=== PATIENT | male | born 1950 | race Caucasian/White ===

== ENCOUNTER 2021-09-14 18:36 | Emergency (ER) | payer MEDICARE, SELFPAY ==
[2021-09-14 18:32] VITALS: BP 147/81; PULSE 86; RESP 16; TEMP 36.8; O2SAT 96; BMI 30.9
--- NOTE | 2021-09-14 20:10 | PC.NURSE ---
Updated family via phone.
--- NOTE | 2021-09-14 20:45 | HMH.EDRECH ---
ED Disposition Clinical Impression: Gastrostomy tube in place Disposition: Home, Self-Care Condition on Discharge: Good Instructions: How to Care for a Surgical Wound Additional Instructions: call pcp and surg in am Referrals: Hay Zambrano MD [Primary Care Provider] - - Critical Care Critical Care Time: No Attestation: On 09/14/21, the high probability of a clinically significant, sudden or life threatening deterioration of the following system(s) required my full and direct attention, intervention and personal management. The time I documented below is in addition to time spent performing reported procedures but includes the following listed in this critical care notation. Medical Decision Making - Medical Records Medical records reviewed: Yes: I reviewed the patient's medical records. - Jose Inquiry Pt receiving controlled substance: No Vital Signs: 09/14/21 18:32 09/14/21 21:04 Temperature 98.3 F 98.8 F Temperature Source Oral Rectal Pulse Rate 89 Pulse Rate [Right Radial] 86 Respiratory Rate 16 18 Blood Pressure 139/77 Blood Pressure [Right Arm] 147/81 H Blood Pressure Mean [Right Arm] 103 Blood Pressure Source Automatic Cuff Blood Pressure Source [Right Arm] Automatic Cuff Blood Pressure Position Supine Blood Pressure Position [Right Arm] Sitting 02 Sat by Pulse Oximetry 96 96 Oxygen Delivery Method Room Air Room Air - Lab Data Lab results reviewed: Yes: I reviewed the patient's lab results. Lab Results 09/14/21 20:58: WBC 8.2, RBC 4.74, Hgb 15.2, Hct 45.6, MCV 96.2 H, MCH 32.0 H, MCHC 33.3, RDW 13.2, Plt Count 321, MPV 7.7, Neut % (Auto) 57.4, Lymph % (Auto) 28.8, [place] % (Auto) 7.9, Eos % (Auto) 3.3, Baso % (Auto) 2.6 H, Neut # (Auto) 4.7, Lymph # (Auto) 2.4, [place] # (Auto) 0.7, Eos # (Auto) 0.3, Baso # (Auto) 0.2 09/14/21 20:58: PT 11.7, INR 1.04 09/14/21 20:58: Sodium 135 L, Potassium 4.0, Chloride 99, Carbon Dioxide 32 H, Anion Gap 8.0, BUN 18, Creatinine 0.60 L, Estimated Creat Clear 102, Estimated GFR 133, Est GFR ( Amer) 161, Glucose 161 H, Calcium 9.1, Total Bilirubin 0.6, AST 44, ALT 61, Alkaline Phosphatase 207 H, C-Reactive Protein 24.0 H, Total Protein 6.6, Albumin 3.4 L, Globulin 3.2, Albumin/Globulin Ratio 1.1 Result diagrams: 09/14/21 20:58 09/14/21 20:58 Orders (Tests/Meds): ORDERS Category Date Time Status C-Reactive Protein Stat Lab 09/14/21 20:58 Results Complete Blood Count Auto Diff Stat Lab 09/14/21 20:58 Results Comprehensive Metabolic Panel Stat Lab 09/14/21 20:58 Results Erythrocyte Sedimentation Rate Stat Lab 09/14/21 20:58 Results Procalcitonin Stat Lab 09/14/21 20:58 Results Medical Decision Narrative: stable exam and labs - call surg for follow up in am Recheck HPI - General Chief Complaint: Recheck/Abnormal Lab/Rx Stated Complaint: Bleeding G-Tube Time Seen by Provider: 09/14/21 20:45 Mode of Arrival: EMS Source of Information: Patient, EMS, Medical Record Limitations: No Limitations Description of Symptoms (Recalled from ER Triage Doc. by RN): Pt to ED r/t bleeding from G-Tube site. EMS reports that pt had tube placed on 09/03 and followed up on 09/11 d/t bleeding from site. group home staff reports that G-Tube still functions appropriately, but that bleeding from insertion site has been continuous since placement. - History of Present Illness HPI narrative: reported bleeding from gt ube site complaint: other (g tube site ) Initial visit (ago): day(s) Returns today for: wound recheck Context: other (bleeding from g tube site ) Associated symptoms: none - Related Data Home Medications Medication Instructions Recorded Confirmed aspirin 81 mg tablet,delayed 81 mg PO QDAY 06/01/17 release atorvastatin 80 mg tablet 80 mg PO QDAY 06/01/17 cilostazol 100 mg tablet 100 mg PO BID 06/01/17 liraglutide 0.6 mg/0.1 mL (18 mg/3 1.6 mg SUB-Q QDAY ml 06/01/17 mL) subcutaneous pen injector loratadine
[2021-09-14 21:04] VITALS: BP 139/77; PULSE 89; RESP 18; TEMP 37.1; O2SAT 96
[2021-09-14 21:11] LABS: Basophils # 0.2 K/mm3 (0-0.2); Basophils % 2.6 % (0.1-2.0); Eosinophils # 0.3 K/mm3 (0.0-0.4); Eosinophils % 3.3 % (0.1-12.0); Hematocrit 45.6 % (42.0-52.0); Hemoglobin 15.2 g/dL (14.1-18.0); Lymphocytes # 2.4 K/mm3 (0.7-4.5); Lymphocytes % 28.8 % (10-50); Mean Corpuscular HGB Conc 33.3 g/dL (31.8-35.4); Mean Corpuscular Volume 96.2 fl (80-94); Mean Platelet Volume 7.7 fl (7.4-10.4); Monocytes # 0.7 K/mm3 (0.1-1.0); Monocytes % 7.9 % (1.7-9.3); Neutrophils # 4.7 K/mm3 (1.8-7.8); Neutrophils % 57.4 % (37.0-80.0); Platelet Count 321 K/mm3 (142-424); Red Blood Count 4.74 M/mm3 (4.60-6.20); Red Cell Distribution Width 13.2 % (11.5-17.5); White Blood Count 8.2 K/mm3 (4.8-10.8)
[2021-09-14 21:15] LABS: Chloride 99 mmol/L (98-107); Sodium 135 mmol/L (136-145)
[2021-09-14 21:18] LABS: Alanine Aminotransferase 61 U/L (12-78); Albumin Level 3.4 g/dl (3.5-5.0); Albumin/Globulin Ratio 1.1 (1.1-1.8); Alkaline Phosphatase 207 U/L (38-126); Aspartate Amino Transferase 44 U/L (17-59); Bilirubin,Total 0.6 mg/dl (0.2-1.3); Blood Urea Nitrogen 18 mg/dl (9-20); Carbon Dioxide 32 mmol/L (22.0-30.0); Creatinine Clearance Estimated 102 mL/min (50-200); Estimated Glomerular Filt Rate 133 ml/min (>60); GFR (African American) 161 ML/MIN (>60); Globulin 3.2 g/dL (1.3-3.2); Total Protein,Serum 6.6 g/dl (6.3-8.2)
[2021-09-14 21:19] LABS: Calcium 9.1 mg/dl (8.4-10.2); Glucose 161 mg/dl (74-100)
[2021-09-14 21:22] LABS: INR 1.04 (0.9-1.1); Prothrombin Time 11.7 seconds (10.1-12.5)
[2021-09-14 21:40] VITALS: BP 139/79; PULSE 89; RESP 16; O2SAT 96
[2021-09-14 21:45] VITALS: BP 148/80; PULSE 88; RESP 16; O2SAT 96
[2021-09-14 22:00] LABS: Erythrocyte Sedimentation Rate 85 mm/hr (0-20)
[2021-09-14 22:01] VITALS: BP 149/83; PULSE 83; RESP 18; TEMP 36.7; O2SAT 94
[2021-09-14 22:05] LABS: Procalcitonin 0.124 ng/mL (0.0-2.0)
--- NOTE | 2021-09-14 22:22 | PC.NURSE ---
Santa notified of patient ready to be transferred back to [place], they will transport as soon as other ambulance gets back from [place]
== END 2021-09-14 22:41 | disposition home or self-care (01) ==
PROVIDERS: Emergency Provider Emergency Medicine; PCP Internal Medicine Adolescent Medicine
DX: K94.21 Gastrostomy hemorrhage (principal); R79.9 Abnormal finding of blood chemistry, unspecified; R00.2 Palpitations; R53.81 Other malaise; I10 Essential (primary) hypertension; I25.10 Atherosclerotic heart disease of native coronary artery without angina pectoris; I73.9 Peripheral vascular disease, unspecified; K21.9 Gastro-esophageal reflux disease without esophagitis; E78.5 Hyperlipidemia, unspecified; F32.A Depression, unspecified; Z79.1 Long term (current) use of non-steroidal anti-inflammatories (NSAID); Z79.51 Long term (current) use of inhaled steroids; Z79.4 Long term (current) use of insulin; Z79.82 Long term (current) use of aspirin; Z79.02 Long term (current) use of antithrombotics/antiplatelets; Z79.899 Other long term (current) drug therapy; Z82.49 Family history of ischemic heart disease and other diseases of the circulatory system
CPT/HCPCS: 80053; 84145; 85025; 85610; 85651; 86140; 99282

== ENCOUNTER 2021-09-21 22:33 | Inpatient (IN) | payer MEDICARE, SELFPAY ==
[2021-09-21 22:20] VITALS: BP 143/75; PULSE 130; RESP 36; TEMP 38.8; O2SAT 84; BMI 22.4
--- NOTE | 2021-09-21 22:31 | ECG_ITS ---
APPROVED REPORT Exam: Resting ECG HR:127 bpm ECG Measurements Heart Rate 127 AXES TX 125 P 70 QRSd 108 QRS 87 QT 344 T 35 QTc 419 Conclusion SINUS TACHYCARDIA NONSPECIFIC ST & T-WAVE ABNORMALITY ABNORMAL RHYTHM ECG UNCONFIRMED REPORT Electronically signed by : Hay Zambrano MD 09/22/2021 21:20:47
[2021-09-21 22:35] LABS: ABG Base Excess 8.1 mmol/L (-2.4-2.3); ABG HCO3 31.7 mmhg (22.0-26.0); ABG Oxygen Saturation 89 % (90-100); ABG PH 7.48 mmol/L (7.35-7.45); ABG PO2 52.2 mmhg (80-100)
[2021-09-21 22:36] LABS: Allen's Test Acceptable; Source Right Radial
[2021-09-21 22:47] VITALS: BMI 22.4
--- NOTE | 2021-09-21 22:47 | XR_ITS ---
PROCEDURE INFORMATION: Exam: XR Chest Exam date and time: 09/21/2021 10:56 PM Age: 70 years old Clinical indication: Shortness of breath; Additional info: Congestion TECHNIQUE: Imaging protocol: XR of the chest. Views: 1 view. COMPARISON: CR CXR1 CHEST-PORTABLE 08/02/2015 12:47 PM FINDINGS: Lungs: Unremarkable. No consolidation. Pleural spaces: Unremarkable. No pleural effusion. No pneumothorax. Heart/Mediastinum: Midline sternotomy. No cardiomegaly. Bones/joints: Unremarkable. IMPRESSION: No acute findings.
--- NOTE | 2021-09-21 22:55 | PC.NURSE ---
RAD at BS
[2021-09-21 22:59] LABS: Microscopic, Urine URINE MICROSCOPIC (MICROSCOPIC)
[2021-09-21 23:07] LABS: Basophils # 0.2 K/mm3 (0-0.2); Basophils % 0.8 % (0.1-2.0); Eosinophils % 0.1 % (0.1-12.0); Hematocrit 42.8 % (42.0-52.0); Lymphocytes # 0.6 K/mm3 (0.7-4.5); Lymphocytes % 3.2 % (10-50); Mean Corpuscular HGB Conc 32.8 g/dL (31.8-35.4); Mean Corpuscular Hemoglobin 31.8 pg (27.0-31.2); Mean Platelet Volume 8.4 fl (7.4-10.4); Monocytes # 0.8 K/mm3 (0.1-1.0); Monocytes % 4.3 % (1.7-9.3); Neutrophils # 17.7 K/mm3 (1.8-7.8); Neutrophils % 91.6 % (37.0-80.0); Platelet Count 288 K/mm3 (142-424); Red Blood Count 4.41 M/mm3 (4.60-6.20); Red Cell Distribution Width 13.4 % (11.5-17.5); White Blood Count 19.3 K/mm3 (4.8-10.8)
--- NOTE | 2021-09-21 23:07 | PC.NURSE ---
Family at BS at this time
[2021-09-21 23:09] LABS: MANUAL DIFFERENTIAL MANUAL DIFFERENTIAL (MANUAL DIFF)
--- NOTE | 2021-09-21 23:09 | HMH.EDSOB ---
ED Disposition Clinical Impression: Severe sepsis with acute organ dysfunction, Elevated troponin, Gastrostomy tube in place Respiratory failure with hypoxia Qualifiers: Chronicity: acute Qualified Code(s): J96.01 - Acute respiratory failure with hypoxia UTI (urinary tract infection) Qualifiers: Urinary tract infection type: site unspecified Hematuria presence: without hematuria Qualified Code(s): N39.0 - Urinary tract infection, site not specified Disposition: Admitted As Inpatient Condition on Discharge: Serious Referrals: Provider,Referral, [Referring] - - Critical Care Critical Care Time: No Attestation: On 09/21/21, the high probability of a clinically significant, sudden or life threatening deterioration of the following system(s) required my full and direct attention, intervention and personal management. The time I documented below is in addition to time spent performing reported procedures but includes the following listed in this critical care notation. Medical Decision Making - Medical Records Medical records reviewed: Yes: I reviewed the patient's medical records. - Jose Inquiry Pt receiving controlled substance: No Vital Signs: 09/21/21 22:20 09/21/21 23:39 09/21/21 23:40 Temperature 101.8 F H Temperature Source Rectal Pulse Rate 125 H Pulse Rate [Right] 130 H Respiratory Rate 36 H 40 H Blood Pressure [Right Arm] 143/75 H Blood Pressure Mean [Right Arm] 97 02 Sat by Pulse Oximetry 84 L 91 L Oxygen Delivery Method Nasal Cannula Vapotherm Oxygen Flow Rate (LPM) 35 - Lab Data Lab results reviewed: Yes: I reviewed the patient's lab results. Lab Results 09/21/21 22:30: WBC 19.3 H, RBC 4.41 L, Hgb 14.0 L, Hct 42.8, MCV 97.0 H, MCH 31.8 H, MCHC 32.8, RDW 13.4, Plt Count 288, MPV 8.4, Neut % (Auto) 91.6 H, Lymph % (Auto) 3.2 L, [place] % (Auto) 4.3, Eos % (Auto) 0.1, Baso % (Auto) 0.8, Neut # (Auto) 17.7 H, Lymph # (Auto) 0.6 L, [place] # (Auto) 0.8, Eos # (Auto) 0.0, Baso # (Auto) 0.2, ESR 61 H 09/21/21 22:30: Sodium 133 L, Potassium 3.9, Chloride 91 L, Carbon Dioxide 37 H, Anion Gap 8.9, BUN 26 H, Creatinine 0.70, Estimated Creat Clear 76, Estimated GFR 111, Est GFR ( Amer) 135, Glucose 244 H, Calcium 8.6, Total Bilirubin 0.6, AST 58, ALT 47, Alkaline Phosphatase 253 H, C-Reactive Protein 130.9 H, Total Protein 6.7, Albumin 3.4 L, Globulin 3.3 H, Albumin/Globulin Ratio 1.0 L, Procalcitonin 0.455 09/21/21 22:30: Lactate 2.4 H 09/21/21 22:33: Specimen Source Right radial, O2 % 6lmp, ABG pH 7.48 H, ABG pCO2 44.0, ABG pO2 52.2 L, ABG HCO3 31.7 H, ABG Total CO2 33.0 H, ABG O2 Saturation 89 L, ABG Base Excess 8.1 H, David Test Acceptable 09/21/21 22:38: Urine Color Dark yellow, Urine Appearance Clear, Urine pH 7.0, Ur Specific [place] 1.010, Urine Protein 1+, Urine Glucose (UA) Negative, Urine Ketones Negative, Urine Blood Trace-i, Urine Nitrate Negative, Urine Bilirubin Negative, Urine Urobilinogen 2.0, Ur Leukocyte Esterase 3+ A, Urine RBC 3-5, Urine WBC Tntc, Urine Bacteria 1+ 09/21/21 22:38: Troponin I 0.29 H 09/21/21 23:20: SARS-CoV-2 (PCR) Not detected, Influenza A Untype (PCR) Not detected, Influenza Type B (PCR) Not detected Result diagrams: 09/21/21 22:30 09/21/21 22:30 Orders (Tests/Meds): ED MEDICATIONS Generic Name Dose Route Start Last Admin Trade Name Freq PRN Reason Stop Dose Admin Sodium Chloride 1,000 mls @ 999 mls/hr 09/21/21 23:30 09/21/21 23:28 Sod Chlor 0.9% 1000ml Bag IV 09/22/21 00:30 999 mls/hr .Q1H1M ROCIO Administration Sodium Chloride 1,000 mls @ 999 mls/hr 09/22/21 00:15 09/22/21 00:09 Sod Chlor 0.9% 1000ml Bag IV 09/22/21 01:15 999 mls/hr .Q1H1M ROCIO Administration Ceftriaxone Sodium 1 gm/ 50 mls @ 100 mls/hr 09/22/21 00:15 09/22/21 00:16 Sodium Chloride IV 10/06/21 00:14 100 mls/hr Q24H ROCIO Administration Sodium Chloride 3 ml 09/21/21 22:47 Sodium Chloride 3% 15ml Neb IH 10/21/21 22:46 ONCE PRN IN
--- NOTE | 2021-09-21 23:16 | PC.NURSE ---
RT at BS
[2021-09-21 23:18] LABS: Alanine Aminotransferase 47 U/L (12-78); Albumin Level 3.4 g/dl (3.5-5.0); Alkaline Phosphatase 253 U/L (38-126); Anion Gap 8.9 mEq/L (5-15); Aspartate Amino Transferase 58 U/L (17-59); Bilirubin,Total 0.6 mg/dl (0.2-1.3); Blood Urea Nitrogen 26 mg/dl (9-20); Calcium 8.6 mg/dl (8.4-10.2); Carbon Dioxide 37 mmol/L (22.0-30.0); Chloride 91 mmol/L (98-107); Creatinine Clearance Estimated 76 mL/min (50-200); Estimated Glomerular Filt Rate 111 ml/min (>60); GFR (African American) 135 ML/MIN (>60); Globulin 3.3 g/dL (1.3-3.2); Glucose 244 mg/dl (74-100); Potassium 3.9 mmoL/L (3.5-5.1); Sodium 133 mmol/L (136-145); Total Protein,Serum 6.7 g/dl (6.3-8.2)
[2021-09-21 23:22] LABS: C-Reactive Protein 130.9 mg/L (0-4); Lactic Acid 2.4 mmol/L (0.7-2.1)
[2021-09-21 23:27] LABS: Coronavirus 19, PCR Not Detected (NotDetected); Influenza A, PCR Not Detected (NotDetected); Influenza B, PCR Not Detected (NotDetected)
[2021-09-21 23:29] LABS: Appearance,Urine CLEAR (Clear); Bilirubin,Urine Negative (Negative); Blood, Urine TRACE-I (Negative); Glucose,Urine (UA) Negative (Negative); Ketones,Urine Negative (Negative); Leukocyte Esterase,Urine 3+ (Negative); Nitrate,Urine Negative (Negative); Protein,Urine 1+ (Negative)
[2021-09-21 23:32] LABS: Color,Urine Dark Yellow (Yellow)
[2021-09-21 23:33] LABS: Troponin I 0.29 ng/ml (0.00-0.034)
[2021-09-21 23:36] LABS: Procalcitonin 0.455 ng/mL (0.0-2.0)
[2021-09-21 23:38] LABS: Erythrocyte Sedimentation Rate 61 mm/hr (0-20)
[2021-09-21 23:39] VITALS: O2SAT 91
[2021-09-21 23:40] VITALS: PULSE 125; RESP 40
[2021-09-21 23:53] LABS: WBC,Urine TNTC #/hpf (0-3)
[2021-09-21 23:54] LABS: Bacteria,Urine 1+ /lpf
[2021-09-22] VITALS (13 sets, daily range): BP systolic 124–153; BP diastolic 54–85; PULSE 84–114; RESP 20–24; TEMP 37.2–38.6; O2SAT 85–100; BMI 22.4; BMI 22.3
--- NOTE | 2021-09-22 00:30 | PC.NURSE ---
Dr. Mio tena
[2021-09-22 01:01] LABS: Lymphocytes % 5 % (10-50); Monocytes % 1 % (2-9); Neutrophils % 94 % (42-76); Total Cells Counted 100
[2021-09-22 01:02] LABS: Platelet Estimate Normal; RBC Morphology Normal
[2021-09-22 01:50] LABS: NT Pro Brain Natriuretic Pep. 703 pg/mL (0-125)
[2021-09-22 02:03] LABS: Thyroid Stimulating Hormone 4.06 uIU/mL (0.465-4.68)
[2021-09-22 02:14] LABS: Reflex Lactic Add Lactic Reflex
--- NOTE | 2021-09-22 02:17 | PC.NURSE ---
PT TO FLOOR VIA STRETCHER AT [id number]
[2021-09-22 02:27] LABS: Lactic Acid Follow Up (RFLX 1) 1.1 mmol/L (0.7-2.1)
[2021-09-22 02:52] LABS: Troponin I 3.56 ng/ml (0.00-0.034)
[2021-09-22 05:52] LABS: POC Glucose,Bedside 151 (70-110)
--- NOTE | 2021-09-22 06:59 | PC.NURSE ---
Pt arrived to the floor. Pt only gargles and makes a few no sounds. PT poor historian. Mouth cleaned and several large pieces of yellow mush removed. Suction hooked up in room for asp. precautions. PT noted to have fungal rash to buttocks and sheering or stage 2 to buttocks and left ankle. Meplax pad applied to area. rhochi noted to lungs encourage to cough not responsive only looked at nurse. Squints with left eye and tracks with right. HX of CVA but drops both arms when lifted but deficit reported on the left side. Hair is matted and umanzor is long and unkept.
--- NOTE | 2021-09-22 07:00 | XR_ITS ---
FINAL REPORT CLINICAL HISTORY: sob COMPARISON: September 21, 2021 FINDINGS: There are multiple sternotomy wires. The heart size is normal. The mediastinum is normal. There are chronic changes in the lung bases. There is no focal infiltrate or edema. There are no pleural effusions. There is no pneumothorax. There is no osseous abnormality. IMPRESSION: No acute cardiopulmonary process Reviewed, Interpreted and Dictated by Connor Martinez MD Transcribed by Burton Anderson Authenticated by Connor Martinez MD on 09/22/2021 07:37:48 AM [facility]
--- NOTE | 2021-09-22 07:09 | P.CONPHA_ITS ---
[facility] Pharmacy VTE Monitoring - Patient Demographics Admission date: 09/21/21 Report Date: 09/22/21 Time: 07:09 Allergies/Adverse Reactions: Patient Allergies No Known Allergies Allergy (Unverified 04/19/17 14:10) Height: 1.88 m Weight: 79.197 kg Patient Problems: Current Active Problems Gastrostomy tube in place (Acute) Respiratory failure with hypoxia (Acute) Severe sepsis with acute organ dysfunction (Acute) UTI (urinary tract infection) (Acute) Elevated troponin (Acute) - VTE Risk Labs: VTE Related Lab Results Hgb 14.0 g/dL (14.1-18.0) L 09/21/21 22:30 Hct 42.8 % (42.0-52.0) 09/21/21 22:30 Plt Count 288 K/mm3 (142-424) 09/21/21 22:30 BUN 26 mg/dl (9-20) H 09/21/21 22:30 Creatinine 0.70 mg/dl (0.66-1.25) 09/21/21 22:30 Estimated Creat Clear 76 mL/min (50-200) 09/21/21 22:30 VTE Risk Level: Moderate Risk - Prophylaxis VTE Prophylaxis Ordered?: Yes Types of VTE Prophylaxis: TEDS Knee High Location of Applied Device: Bilateral Lower Extremeties
--- NOTE | 2021-09-22 07:21 | ECG_ITS ---
APPROVED REPORT Exam: Resting ECG HR:108 bpm ECG Measurements Heart Rate 108 AXES RI 157 P 67 QRSd 114 QRS 70 QT 351 T 73 QTc 415 Conclusion SINUS TACHYCARDIA MODERATE INTRAVENTRICULAR CONDUCTION DELAY [110+ ms QRS DURATION] ABNORMAL RHYTHM ECG UNCONFIRMED REPORT Electronically signed by : Hay Zambrano MD 09/22/2021 21:20:10
--- NOTE | 2021-09-22 07:22 | HMH.HP ---
*Admission Date: 09/21/21 *Chief complaint: emesis, respiratory distress, sepsis *History of present illness: Mr. Andres is a 70-year-old male with PEG tube, history of CVA, left-sided paralysis, who receives tube feeds daily. [facility] the [facility] he had an episode of emesis with tube feeds coming out of his nose. Went into respiratory distress. Was found to be febrile, oxygen saturations in the mid 80s on 6 L nasal cannula oxygen. He was transferred out via EMS to the ER for further evaluation. On arrival to the ER, patient's work-up elicited findings concerning for acute UTI and respiratory failure with hypoxemia. Additionally met criteria for sepsis given tachycardia and fever. Started on broad-spectrum antibiotics, initiated on Vapotherm for breathing, and initiated on IV fluids. Admitted to medicine for further management. Labs also showed elevated troponin that plateaued overnight at approximately 3.5. No EKG changes noted on serial EKGs. Patient denies chest pain. Has significant tachycardia due to his acute illness. Evaluation this morning, he is able to answer questions and is oriented to person. Remains febrile this morning. On 100% Vapotherm with sats in the mid 90s. Remains NPO. Reviewed imaging, no focal consolidation or findings of pneumonia. Urine culture pending. UA significant for UTI. [facility] History I have reviewed the patient's past medical history: Yes Medical History: Reports:: Coronary Artery Disease, Depression, Diabetes Mellitus Type 2, Gastroesophageal Reflux Disease(GERD), Hyperlipidemia, Hypertension, Palpitations, Peripheral Artery Disease *Have you ever received a pneumonia vaccine?: No (unknown) *Have you received a flu vaccine this season?: No (unknown) Other Surgeries: Yes: Angioplasty, Coronary Stent, Other (Retina Replacement) - *Social History Smoking Status: Never smoker Alcohol Intake: never *Occupational Status:: disabled *Travel in the last 8 weeks: None - Psychiatric History Pschychiatric History:: Reports:: Depression Family Hx:: Coronary Artery Disease, Heart Attack Review of Systems - Review of Systems Review of systems:: pertinent systems reviewed and negative unless documented below (14 point review of systems performed, pertinent positives and negatives as per HPI) Meds Home Medications Medication Instructions Recorded Confirmed Type aspirin 81 mg tablet,delayed 81 mg G-TUBE DAILY 06/01/17 09/22/21 History release atorvastatin 80 mg tablet 80 mg G-TUBE HS 06/01/17 09/22/21 History Amlodipine Besylate [Norvasc 5mg 5 mg G-TUBE BID 09/21/21 09/22/21 History tablet] Gabapentin [Gabapentin 100mg Cap] 100 mg G-TUBE TID 09/21/21 09/22/21 History Insulin Aspart [Novolog] 0 unit SQ ACHS 09/21/21 09/22/21 History Insulin Glargine,Hum.rec.anlog 45 units SQ HS 09/21/21 09/22/21 History [Lantus Solostar 100 Units/mL 3mL flexpen] Lansoprazole [Prevacid] 30 mg G-TUBE HS 09/21/21 09/22/21 History Levothyroxine Sodium [Synthroid 25 mcg G-TUBE DAILY 09/21/21 09/22/21 History 25mcg (0.025mg) tablet] Acetaminophen [Acetaminophen Extra 1,000 mg G-TUBE Q6HP PRN 09/22/21 09/22/21 History Strength] Albuterol Sulfate [Albuterol 2.5 mg IH Q4HP PRN 09/22/21 09/22/21 History 0.083% 2.5mg/3mL neb] Clopidogrel Bisulfate [Plavix 75mg 75 mg G-TUBE DAILY 09/22/21 09/22/21 History Tab] Docusate Sodium [Stool Softener] 100 mg G-TUBE BIDP PRN 09/22/21 09/22/21 History Magnesium Hydroxide [Milk of 30 ml G-TUBE DAILYP PRN 09/22/21 09/22/21 History Magnesia 30mL Udc] Nystatin 10 ml G-TUBE QID 09/22/21 09/22/21 History Allergies Allergy/AdvReac Type Severity Reaction Status Date / Time No Known Allergies Allergy Unverified 04/19/17 14:10 Exam Vital signs and Labs for Last 24 Hours: Temp Pulse Resp BP Pulse Ox 99.5 F 106 H 20 132/85 85 L 09/22/21 04:00 09/22/21 06:14 09/22/21 04:00 09/22/21 04:00 09/22/21 06[facility]
[2021-09-22 07:51] LABS: Basophils # 0.2 K/mm3 (0-0.2); Basophils % 0.6 % (0.1-2.0); Eosinophils # 0.1 K/mm3 (0.0-0.4); Eosinophils % 0.2 % (0.1-12.0); Hematocrit 37.1 % (42.0-52.0); Hemoglobin 13.1 g/dL (14.1-18.0); Lymphocytes % 7.2 % (10-50); Mean Corpuscular HGB Conc 35.3 g/dL (31.8-35.4); Mean Corpuscular Hemoglobin 34.1 pg (27.0-31.2); Mean Corpuscular Volume 96.6 fl (80-94); Mean Platelet Volume 8.6 fl (7.4-10.4); Monocytes % 10.7 % (1.7-9.3); Neutrophils # 22.9 K/mm3 (1.8-7.8); Neutrophils % 81.8 % (37.0-80.0); Platelet Count 218 K/mm3 (142-424); Red Blood Count 3.84 M/mm3 (4.60-6.20); Red Cell Distribution Width 13.4 % (11.5-17.5); White Blood Count 27.9 K/mm3 (4.8-10.8)
[2021-09-22 07:53] LABS: MANUAL DIFFERENTIAL MANUAL DIFFERENTIAL (MANUAL DIFF)
--- NOTE | 2021-09-22 08:00 | CA_ITS ---
APPROVED REPORT EXAM: Comprehensive 2D, Doppler, and color-flow Echocardiogram Counselor Supervisor: Becki Mendoza CRT Ht: 6 ft 2 in Wt: 175lbs BSA: 2.05 BP: 143/75 mmHg Indications: DNR, stent, on vapotherm 2D Dimensions LVOT 2.03 cm (M/F) 1.5-2.5 LA Volume 51.90 mL LA Volume Index 25.30 mL/m2 (M/F) 16-34 M-Mode Dimensions RVDd 1.79 cm (0.9-2.6) LA Diam 3.27 cm (1.9-4.0) LVDd 4.70 cm (3.5-5.7) Ao Diam 3.93 cm (2.0-3.7) LVDs 3.44 cm (3.5-5.7) IVSd 1.04 cm (0.6-1.1) PWd 1.11 cm (0.6-1.1) EF (Teich) 52.30% FS 26.80% EDV (Teich) 102.40 mL TAPSE 1.70 (<1.7) ESV (Teich) 48.80 mL LV Diastology E Decel Time 150.00 (160-240 msec) E/A Ratio 0.81 MED E' 8.40 (< 7 cm/sec) MED A' 11.80 cm/s E'/MED E' Ratio 10.32 (>14) LAT E' 8.90 (<10 cm/sec) LAT A' 14.80 cm/s E/LAT E' Ratio 9.74 (>14) Aortic Valve AO Peak GR. 9.30 mmHg Mitral Valve MV E Max Juan. 87.00 (40-130 cm/s) MV A Velocity 107.00 (40-130 cm/s) E/A Ratio 0.81 MV Decel. Time 150.00 (160-240 ms) MV PHT 44.00 ms Pulmonary Valve PV Peak Velocity 98.00 (50-150 cm/s) Tricuspid Valve TR P. Velocity 171.00 cm/s RAP Estimate 10.00 mmHg RVSP 21.70 mmHg Left Ventricle Technically difficult study because of the patient factors and poor acoustic windows. Left atrium is mildly enlarged, left ventricle is normal size, there is abnormal septal motion, probably preserved left ventricular systolic function, estimated ejection fraction from the obtained views approximately 50%. Doppler evidence of impaired relaxation seen. Right Ventricle Right atrium and right ventricle are mildly enlarged with normal contractility. Aortic Valve Aortic valve is thickened and calcified without aortic stenosis or aortic insufficiency. Mitral Valve Mitral valve leaflets are minimally thickened, there is mild mitral regurgitation. Tricuspid Valve Tricuspid grossly normal, there is mild tricuspid regurgitation, tricuspid regurgitation jet velocity is inadequate for calculation of the right ventricular systolic pressure. Pulmonic Valve Pulmonic valve is poorly visualized. Great Vessels Aortic root is normal size. Inferior vena cava is poorly visualized. Pericardium No significant pericardial effusion noted. Conclusion 1. Technically difficult study because of the patient factors and poor acoustic windows. 2. Mild biatrial enlargement, probably preserved left ventricular systolic function, estimated ejection fraction 50% with no obvious regional wall motion abnormality in the obtained views, there is abnormal septal motion. 3. Mildly enlarged right ventricle with normal contractility. 4. No significant pericardial effusion. 5. Inferior vena cava is poorly visualized. Electronically signed by : Regino Tapia MD 09/22/2021 20:12:11
--- NOTE | 2021-09-22 08:01 | HMH.PHAINT ---
MEDICATION RECONCILIATION COMPLETED ON PATIENT USING EXTERNAL FILL HISTORY FROM PHARMACY. -KEELEY CHOU, ANUJAD
[2021-09-22 08:32] LABS: Eosinophils % 1 % (0-3); Lymphocytes % 6 % (10-50); Monocytes % 4 % (2-9); Neutrophils % 83 % (42-76); Total Cells Counted 100
[2021-09-22 08:33] LABS: Anisocytosis 1+; Macrocytosis 1+; Platelet Estimate Normal
[2021-09-22 09:02] LABS: Troponin I 3.53 ng/ml (0.00-0.034)
--- NOTE | 2021-09-22 09:05 | XR_ITS ---
FINAL REPORT CLINICAL HISTORY: verify peg tube placement FINDINGS: A single supine view of the abdomen was obtained. There is no prior for comparison. A PEG tube projects over the left upper quadrant. The bowel gas pattern is unremarkable. There are no pathologic calcifications. Osseous structures are within normal limits. IMPRESSION: Peg tube projects over the left upper quadrant. Reviewed, Interpreted and Dictated by Melody Sanderson MD Transcribed by Burton Anderson Authenticated by Melody Sanderson MD on 09/22/2021 10:38:05 AM [facility]
--- NOTE | 2021-09-22 09:05 | DIET.NUTRFU ---
Addendum entered by Elsia Harding RD, LD 09/22/21 14:48: Per Dr. Lieberman we are to use peg tube for meds but hold off on tube feedings for 24 hrs to rest bowels. Fluids changed to D5 half normal saline Original Note: RD consulted for TF regimen, he was admitted from [facility]. Spoke to nurse that follows him at [facility], he was just admitted on 09/11 to them. Weight stable at 175#. New PEG placed on September 03, she reported he tolerates with minimal residuals of 20ml. At [facility] they were using Diabeticsource AC, hx of diabetes. Nursing noted stage 2 to buttocks and L ankle, increased protein needed. Reviewed labs: 09/21 Na 133L, K 3.9, BUN 26H, Cr 0.70 and glucose 151H, BNP 703H and tropinin 3.56H. Does have hx of CHF, provide 25ml/kg to avoid fluid overload, once TF reaches goals will need to discontinue IVF. Will start glucerna at 20ml/hr and increase as tolerated to goal rate of 85ml/hr to provide 1955kcal and 81.7gm protein with 1667ml free water with flush of 300ml/day for total fluid of 1975ml/day to provide 100% of needs.
--- NOTE | 2021-09-22 09:15 | PC.NURSE ---
lab called and reported critical troponin of 3.53. patient name and brithdate verified with lab. made aware
[2021-09-22 09:45] LABS: Anion Gap 9.4 mEq/L (5-15); Blood Urea Nitrogen 24 mg/dl (9-20); Calcium 7.8 mg/dl (8.4-10.2); Carbon Dioxide 29 mmol/L (22.0-30.0); Chloride 100 mmol/L (98-107); Creatinine Clearance Estimated 76 mL/min (50-200); Estimated Glomerular Filt Rate 133 ml/min (>60); GFR (African American) 161 ML/MIN (>60); Glucose 145 mg/dl (74-100); Potassium 4.4 mmoL/L (3.5-5.1); Sodium 134 mmol/L (136-145)
[2021-09-22 11:21] LABS: POC Glucose,Bedside 131 (70-110)
--- NOTE | 2021-09-22 11:52 | PC.NURSE ---
Spoke to Dr. Lieberman about KUB results. Per Dr. Lieberman we are to use peg tube for meds but hold off on tube feedings for 24 hrs to rest bowels. Fluids changed to D5 half normal saline and patient now q6 fingersticks and q6 achs due to diabetic status.
[2021-09-22 16:44] LABS: POC Glucose,Bedside 171 (70-110)
--- NOTE | 2021-09-22 18:39 | PC.NURSE ---
Took over care of pt this afternoon, with no acute changes. Pt has had a temp rectally of 101.2. PRN tylenol suppository given pert jun. Will recheck temp, ice packs applied and cool compresses to neck and arms. Remains on 40 L and 100% on vapotherm.
--- NOTE | 2021-09-22 21:08 | PC.NURSE ---
Pt noted to have elevated temp of 101.3 ax. PT has had tylenol for fever at 1700 and has a fan blowing on him at this time. wet washclothes and ice pack to his groin attempting to reduce his temp.
[2021-09-23] VITALS (14 sets, daily range): BP systolic 113–157; BP diastolic 56–74; PULSE 70–89; RESP 20–26; TEMP 36.4–37.6; O2SAT 98–100; BMI 22.8
[2021-09-23 04:03] LABS: POC Glucose,Bedside 177 (70-110)
[2021-09-23 06:22] LABS: POC Glucose,Bedside 204 (70-110)
--- NOTE | 2021-09-23 07:12 | PC.NURSE ---
Pt fever reduces with application of ice pack to his groin. Pt resp. demand lessened and RT felt that he could be lessened on the Vapotherm. Pt appeared more comfortable last night than previous nights. Pt remains nonverbal with this nurse. Pt slept all night and appeared to be comfortable.
[2021-09-23 07:45] LABS: Basophils # 0.1 K/mm3 (0-0.2); Basophils % 0.5 % (0.1-2.0); Eosinophils # 0.4 K/mm3 (0.0-0.4); Eosinophils % 1.9 % (0.1-12.0); Hematocrit 33.4 % (42.0-52.0); Lymphocytes # 1.8 K/mm3 (0.7-4.5); Lymphocytes % 8.3 % (10-50); Mean Corpuscular Hemoglobin 32.5 pg (27.0-31.2); Mean Corpuscular Volume 98.4 fl (80-94); Mean Platelet Volume 8.6 fl (7.4-10.4); Monocytes # 2.4 K/mm3 (0.1-1.0); Monocytes % 11.5 % (1.7-9.3); Neutrophils # 16.4 K/mm3 (1.8-7.8); Neutrophils % 77.8 % (37.0-80.0); Platelet Count 200 K/mm3 (142-424); Red Blood Count 3.39 M/mm3 (4.60-6.20); Red Cell Distribution Width 13.4 % (11.5-17.5); White Blood Count 21.1 K/mm3 (4.8-10.8)
[2021-09-23 07:46] LABS: MANUAL DIFFERENTIAL MANUAL DIFFERENTIAL (MANUAL DIFF)
[2021-09-23 08:09] LABS: Anisocytosis 1+; Eosinophils % 1 % (0-3); Lymphocytes % 9 % (10-50); Macrocytosis 1+; Monocytes % 1 % (2-9); Neutrophils % 87 % (42-76); Platelet Estimate Normal; Total Cells Counted 100
--- NOTE | 2021-09-23 08:18 | PC.NURSE ---
verified with md to continue holding tube feeds at this time
[2021-09-23 08:24] LABS: Alanine Aminotransferase 39 U/L (12-78); Albumin Level 2.2 g/dl (3.5-5.0); Albumin/Globulin Ratio 0.9 (1.1-1.8); Alkaline Phosphatase 176 U/L (38-126); Anion Gap 8.7 mEq/L (5-15); Aspartate Amino Transferase 85 U/L (17-59); Bilirubin,Total 0.5 mg/dl (0.2-1.3); Blood Urea Nitrogen 21 mg/dl (9-20); Calcium 7.5 mg/dl (8.4-10.2); Carbon Dioxide 29 mmol/L (22.0-30.0); Chloride 104 mmol/L (98-107); Creatinine Clearance Estimated 77 mL/min (50-200); Estimated Glomerular Filt Rate 164 ml/min (>60); GFR (African American) 198 ML/MIN (>60); Globulin 2.4 g/dL (1.3-3.2); Glucose 212 mg/dl (74-100); Magnesium 2.9 mg/dl (1.6-2.3); Potassium 5.7 mmoL/L (3.5-5.1); Sodium 136 mmol/L (136-145); Total Protein,Serum 4.6 g/dl (6.3-8.2)
--- NOTE | 2021-09-23 08:24 | HMH.ACPN2 ---
Internal Medicine - PN: Subj *Date: 09/23/21 *Time: 08:24 Interval history: Patient has no complaints. Is sleeping. When awakened he reports that he is in no pain. His breathing is about the same. Exam Vital signs and Labs for Last 24 Hours: Temp Pulse Resp BP Pulse Ox 98.3 F 81 22 113/65 100 09/23/21 07:34 09/23/21 07:34 09/23/21 07:34 09/23/21 07:34 09/23/21 07:34 Laboratory Results - last 24 hr 09/22/21 07:30: Troponin I 3.53 H 09/22/21 07:30: Total Counted 100, Neutrophils % (Manual) 83 H, Band Neutrophils % 6.0, Lymphocytes % (Manual) 6 L, Monocytes % (Manual) 4, Eosinophils % (Manual) 1, Platelet Estimate Normal, Anisocytosis 1+, Macrocytosis 1+ 09/22/21 07:30: Sodium 134 L, Potassium 4.4, Chloride 100, Carbon Dioxide 29, Anion Gap 9.4, BUN 24 H, Creatinine 0.60 L, Estimated Creat Clear 76, Estimated GFR 133, Est GFR ( Amer) 161, Glucose 145 H D, Calcium 7.8 L 09/22/21 11:07: POC Glucose 131 H 09/22/21 16:35: POC Glucose 171 H 09/22/21 21:07: POC Glucose 177 H 09/23/21 06:09: POC Glucose 204 H 09/23/21 07:36: WBC 21.1 H*, RBC 3.39 L, Hgb 11.0 L, Hct 33.4 L, MCV 98.4 H, MCH 32.5 H, MCHC 33.0, RDW 13.4, Plt Count 200, MPV 8.6, Neut % (Auto) 77.8, Lymph % (Auto) 8.3 L, [place] % (Auto) 11.5 H, Eos % (Auto) 1.9, Baso % (Auto) 0.5, Neut # (Auto) 16.4 H, Lymph # (Auto) 1.8, [place] # (Auto) 2.4 H, Eos # (Auto) 0.4, Baso # (Auto) 0.1, Total Counted 100, Neutrophils % (Manual) 87 H, Band Neutrophils % 2.0, Lymphocytes % (Manual) 9 L, Monocytes % (Manual) 1 L, Eosinophils % (Manual) 1, Platelet Estimate Normal, Anisocytosis 1+, Macrocytosis 1+ I & O for Last 24 hours: Intake & Output 09/20/21 09/21/21 09/22/21 09/23/21 11:59 11:59 11:59 11:59 Intake Total 0 / 0 0 / 0 Output Total 250 / 250 Balance 0 / 0 -250 / -250 Weight 174 lb 2.643 oz 177 lb 12.8 oz Microbiology Reports for the Last 24 Hours: Microbiology 09/21/21 22:38 Urine,Catheterized Urine Culture - Preliminary NO GROWTH AFTER 24 HOURS 09/21/21 22:46 Sputum - Nasotracheal Suction Gram Stain - Final 09/21/21 22:46 Sputum - Nasotracheal Suction Sputum Culture - Preliminary Narrative: Patient remains on 90% Vapotherm. Is comfortable on this flow rate. Right eye has matted eyelashes but when the eyelashes and eyelids are open his sclera are clear. Left side is clear. Lungs have rhonchi throughout. G-tube site looks good. Heart rate regular. Abdomen soft, no peripheral edema. Assessment and Plan (1) Severe sepsis with acute organ dysfunction Status: Acute Category: Medical Code(s): A41.9 - Sepsis, unspecified organism; R65.20 - Severe sepsis without septic shock (2) Respiratory failure with hypoxia Status: Acute Qualifiers: Chronicity: acute Qualified Code(s): J96.01 - Acute respiratory failure with hypoxia Category: Medical Code(s): J96.91 - Respiratory failure, unspecified with hypoxia (3) Hemiparesis affecting left side as late effect of cerebrovascular accident Status: Chronic Category: Medical Code(s): I69.354 - Hemiplegia and hemiparesis following cerebral infarction affecting left non-dominant side (4) Stage 1 decubitus ulcer Status: Acute Qualifiers: Pressure injury location: sacral region Qualified Code(s): L89.151 - Pressure ulcer of sacral region, stage 1 Category: Medical Code(s): L89.91 - Pressure ulcer of unspecified site, stage 1 (5) NSTEMI (non-ST elevated myocardial infarction) Status: Acute Category: Medical Code(s): I21.4 - Non-ST elevation (NSTEMI) myocardial infarction (6) UTI (urinary tract infection) Status: Acute Qualifiers: Urinary tract infection type: site unspecified Hematuria presence: without hematuria Qualified Code(s): N39.0 - Urinary tract infection, site not specified Category: Medical Code(s): N39.0 - Urinary tract infection, site not specified (7) Diabetes mellitus St
[2021-09-23 08:49] LABS: Troponin I 0.88 ng/ml (0.00-0.034)
--- NOTE | 2021-09-23 08:50 | PC.NURSE ---
lab called with critical troponin. repeated and verified patient name and bday. reported troponin result to .
--- NOTE | 2021-09-23 11:31 | DIET.NUTRFU ---
Spoke to nursing and TF continues to be on hold for BM rest and aspiration risks. Dextrose IV in place for calorie replacement. He is noted to have stage 1 pressure ulcer, will start TF when medically feasible to avoid depleting his protein stores. Discharge plan is back to [facility], they are familiar with TF regimen.
[2021-09-23 11:36] LABS: POC Glucose,Bedside 192 (70-110)
--- NOTE | 2021-09-23 13:19 | PC.NURSE ---
patient does have wounds noted to l ankle and l buttock. physical therapy was on floor and looked at wounds on patient at this time to give recommendations.
--- NOTE | 2021-09-23 13:37 | PC.WOUNDNOTE ---
Addendum entered by Shante Hinkle RN 09/23/21 13:43: Left Heel. Left and Right side of bottom Original Note:
--- NOTE | 2021-09-23 14:36 | PC.NURSE ---
Called Dr. Zambrano left message. Waiting for call back.
--- NOTE | 2021-09-23 15:01 | PC.NURSE ---
Spoke with sister in law who is POA she gave me consent to take pictures.
[2021-09-23 17:12] LABS: POC Glucose,Bedside 162 (70-110)
--- NOTE | 2021-09-23 20:11 | PC.NURSE ---
Pt had a very uneventful shift. He has been getting weaned down off of o2. He has been tolerating that very well. No changes since last assessment.
[2021-09-23 23:05] LABS: POC Glucose,Bedside 111 (70-110)
[2021-09-24] VITALS (9 sets, daily range): BP systolic 122–143; BP diastolic 50–74; PULSE 73–96; RESP 16–24; TEMP 36.7–38.3; O2SAT 4–98; BMI 22.7
--- NOTE | 2021-09-24 04:55 | PC.NURSE ---
pt rested well through the night, pt confused and oriented only to name, pt with history of cva and flaccid on left side, right eye remains closed and being treated with eryc ointment, f/c to bsd with tea colored urine noted, gt clamped with water flushes given as directed, pt afebrile this shift, stage 2 areas were noted on buttocks upon admission, lungs with bilateral rhonchi noted, continuing to wean vapotherm and currently on 20L/30%; no other issues noted at this time.
--- NOTE | 2021-09-24 08:21 | HMH.ACPN2 ---
Internal Medicine - PN: Subj *Date: 09/24/21 *Time: 08:21 Interval history: Overnight patient was able to be weaned down to very minimal Vapotherm settings. This morning he has no complaints. Exam Vital signs and Labs for Last 24 Hours: Temp Pulse Resp BP Pulse Ox 98.2 F 91 H 24 127/60 4 L 09/24/21 04:00 09/24/21 06:20 09/24/21 04:00 09/24/21 04:00 09/24/21 08:00 Laboratory Results - last 24 hr 09/23/21 07:36: Troponin I 0.88 H 09/23/21 07:36: Sodium 136, Potassium 5.7 H D, Chloride 104, Carbon Dioxide 29, Anion Gap 8.7, BUN 21 H, Creatinine 0.50 L, Estimated Creat Clear 77, Estimated GFR 164, Est GFR ( Amer) 198 D, Glucose 212 H, Calcium 7.5 L, Magnesium 2.9 H, Total Bilirubin 0.5, AST 85 H D, ALT 39, Alkaline Phosphatase 176 H, Total Protein 4.6 L D, Albumin 2.2 L D, Globulin 2.4, Albumin/Globulin Ratio 0.9 L 09/23/21 11:28: POC Glucose 192 H 09/23/21 17:06: POC Glucose 162 H 09/23/21 20:42: POC Glucose 111 H I & O for Last 24 hours: Intake & Output 09/21/21 09/22/21 09/23/21 09/24/21 11:59 11:59 11:59 11:59 Intake Total 0 / 0 3434 / 3434 1620 / 1620 Output Total 250 / 250 850 / 850 Balance 0 / 0 3184 / 3184 770 / 770 Weight 174 lb 2.643 oz 177 lb 12.8 oz 177 lb 0.393 oz Microbiology Reports for the Last 24 Hours: Microbiology 09/21/21 22:38 Urine,Catheterized Urine Culture - Final NO GROWTH AFTER 48 HOURS 09/21/21 22:38 Blood Blood Culture - Preliminary NO GROWTH AFTER 48 HOURS 09/21/21 22:38 Blood Blood Culture - Preliminary NO GROWTH AFTER 48 HOURS 09/21/21 22:46 Sputum - Nasotracheal Suction Gram Stain - Final 09/21/21 22:46 Sputum - Nasotracheal Suction Sputum Culture - Preliminary Narrative: Sleeping, when awakened is about the same in regards to his responsiveness level. Still with rhonchi in his lung magallanes. Right eyelash irritation looks better. Heart rate regular. Abdomen soft. G-tube site looks good. No extremity edema. Assessment and Plan (1) Severe sepsis with acute organ dysfunction Status: Acute Category: Medical Code(s): A41.9 - Sepsis, unspecified organism; R65.20 - Severe sepsis without septic shock (2) Respiratory failure with hypoxia Status: Acute Qualifiers: Chronicity: acute Qualified Code(s): J96.01 - Acute respiratory failure with hypoxia Category: Medical Code(s): J96.91 - Respiratory failure, unspecified with hypoxia (3) Hemiparesis affecting left side as late effect of cerebrovascular accident Status: Chronic Category: Medical Code(s): I69.354 - Hemiplegia and hemiparesis following cerebral infarction affecting left non-dominant side (4) Stage 1 decubitus ulcer Status: Acute Qualifiers: Pressure injury location: sacral region Qualified Code(s): L89.151 - Pressure ulcer of sacral region, stage 1 Category: Medical Code(s): L89.91 - Pressure ulcer of unspecified site, stage 1 (5) NSTEMI (non-ST elevated myocardial infarction) Status: Acute Category: Medical Code(s): I21.4 - Non-ST elevation (NSTEMI) myocardial infarction (6) UTI (urinary tract infection) Status: Acute Qualifiers: Urinary tract infection type: site unspecified Hematuria presence: without hematuria Qualified Code(s): N39.0 - Urinary tract infection, site not specified Category: Medical Code(s): N39.0 - Urinary tract infection, site not specified (7) Diabetes mellitus Status: Chronic Category: Medical Code(s): E11.9 - Type 2 diabetes mellitus without complications (8) Hyperlipidemia Status: Chronic Category: Medical Code(s): E78.5 - Hyperlipidemia, unspecified - Assessment and plan all Dx Assessment and Plan for all problems:: Overall improving. We will switch over to nasal cannula today. Remove Jose catheter today. Dietary we will start tube feeds today. If that goes
--- NOTE | 2021-09-24 08:42 | PC.NURSE ---
0740 - Switched pt from vapotherm to 4L NC, 0755 - O2 saturations were 98% 0820 - weaned O2 to 2L NC, 0840 - O2 saturations at @ 95%
--- NOTE | 2021-09-24 09:15 | PC.NURSE ---
RESP CARE NOTE: Pt placed on 2 lpm nasal cannula per Dr Zambrano request. SPO2 remaining at 92% and we will continue to monitor patient.
--- NOTE | 2021-09-24 09:30 | SW/DCPLANNER ---
Addendum entered by Pavithra Hernandez 09/25/21 09:13: The plan for this patient is to return to [facility] today. Updated patient information has been faxed and COVID swab will be collected prior to discharge. Original Note: This patient currently resides at [facility] per [facility] level of care. Updated patient information has been faxed to [facility]. Discharge date is unknown at this time.
--- NOTE | 2021-09-24 10:20 | DIET.NUTRFU ---
Rounded with provider today, ready to start TF. Will continue to follow up on tolerance
[2021-09-24 16:00] LABS: POC Glucose,Bedside 120 (70-110)
--- NOTE | 2021-09-24 16:15 | PC.NURSE ---
Pt is alert to self. Rhonchi noted to lungs. He has been weaned to 2L NC with O2 sats measuring >95%. Tube feeds initiated per order. Residuals were less than 15 mls at 1600. Tube feed increased to 30 mls/hr at that time. Glucose was 112 and 120 at checks. No insulin required per SS. Rebeca albarran'yaneth this am per order. He has urinated since removal. Temp of 100.9 noted around noon, tylenol administered, temp was 99.7 on reassessment. Dressing to coccyx changed during bath this afternoon. Heel protectors in place. Oral care provided and pt turned q2hr. Bed is locked and in the lowest position. Call light w/in reach.
[2021-09-25] VITALS: BP 137/73; PULSE 83; RESP 20; TEMP 36.8; O2SAT 97
[2021-09-25 04:00] VITALS: BP 144/71; PULSE 89; RESP 21; TEMP 36.9; O2SAT 96
--- NOTE | 2021-09-25 04:00 | PC.NURSE ---
pt alert to name, confused otherwise, pt has slept most of night, flaccid on left side, mild to moderate edema noted, pt incontinent of bowel and bladder, stage 2 ulcers noted on coccyx and dressing changed, pressure dressing applied, vss, tube feeds running at 40ml/hr with residuals checked every 4 hours, 5ml residual noted at 2400; gt to upper abdomen, pt with bm this shift. pt with inspiratory and expiratory rhonchi noted, o2 at 1L with sats at 95%.
[2021-09-25 05:00] VITALS: BMI 24.4
--- NOTE | 2021-09-25 05:07 | PC.NURSE ---
noted 25cc of residual after increasing to 40ml/hr, held tube feeds at this time and will recheck residual and resume if better.
--- NOTE | 2021-09-25 06:00 | PC.NURSE ---
residual rechecked and no residual noted, tube feeds started back at 30ml
[2021-09-25 06:30] VITALS: PULSE 82; PULSE 84; O2SAT 96
--- NOTE | 2021-09-25 06:50 | PC.NURSE ---
Respiratory Care Note: NT SXN PT AT THIS TIME. MODERATE AMOUNT OF THICK, RODRIGUEZ SPUTUM WAS SXN OUT.
[2021-09-25 06:51] LABS: Basophils # 0.1 K/mm3 (0-0.2); Basophils % 0.6 % (0.1-2.0); Eosinophils # 0.5 K/mm3 (0.0-0.4); Eosinophils % 4.9 % (0.1-12.0); Hemoglobin 11.2 g/dL (14.1-18.0); Lymphocytes # 1.8 K/mm3 (0.7-4.5); Lymphocytes % 18.7 % (10-50); Mean Corpuscular HGB Conc 32.9 g/dL (31.8-35.4); Mean Corpuscular Hemoglobin 32.6 pg (27.0-31.2); Mean Corpuscular Volume 98.9 fl (80-94); Mean Platelet Volume 8.4 fl (7.4-10.4); Monocytes # 0.7 K/mm3 (0.1-1.0); Monocytes % 7.5 % (1.7-9.3); Neutrophils # 6.6 K/mm3 (1.8-7.8); Neutrophils % 68.4 % (37.0-80.0); Platelet Count 222 K/mm3 (142-424); Red Blood Count 3.44 M/mm3 (4.60-6.20); Red Cell Distribution Width 13.3 % (11.5-17.5); White Blood Count 9.6 K/mm3 (4.8-10.8)
[2021-09-25 07:01] LABS: Anion Gap 8.6 mEq/L (5-15); Blood Urea Nitrogen 14 mg/dl (9-20); Calcium 7.9 mg/dl (8.4-10.2); Carbon Dioxide 29 mmol/L (22.0-30.0); Chloride 103 mmol/L (98-107); Creatinine Clearance Estimated 83 mL/min (50-200); Estimated Glomerular Filt Rate 164 ml/min (>60); GFR (African American) 198 ML/MIN (>60); Glucose 181 mg/dl (74-100); Potassium 3.6 mmoL/L (3.5-5.1); Sodium 137 mmol/L (136-145)
[2021-09-25 07:04] LABS: POC Glucose,Bedside 167 (70-110)
[2021-09-25 08:00] VITALS: BP 162/88; PULSE 88; RESP 18; TEMP 36.8; O2SAT 96
--- NOTE | 2021-09-25 08:13 | PC.NURSE ---
Notified Dr. Lieberman of positive aerobic blood culture for gram positive cocci, PCR was negative. No changes to iv antibiotic regimen.
--- NOTE | 2021-09-25 08:38 | HMH.DCSUM ---
General - General Admission date:: 09/22/21 Discharge date: 09/25/21 HPI HPI: Mr. Andres is a 70-year-old male with PEG tube, history of CVA, left-sided paralysis, who receives tube feeds daily. Yesterday at the skilled nursing he had an episode of emesis with tube feeds coming out of his nose. Went into respiratory distress. Was found to be febrile, oxygen saturations in the mid 80s on 6 L nasal cannula oxygen. He was transferred out via EMS to the ER for further evaluation. On arrival to the ER, patient's work-up elicited findings concerning for acute UTI and respiratory failure with hypoxemia. Additionally met criteria for sepsis given tachycardia and fever. Started on broad-spectrum antibiotics, initiated on Vapotherm for breathing, and initiated on IV fluids. Admitted to medicine for further management. Labs also showed elevated troponin that plateaued overnight at approximately 3.5. No EKG changes noted on serial EKGs. Patient denies chest pain. Has significant tachycardia due to his acute illness. Evaluation this morning, he is able to answer questions and is oriented to person. Remains febrile this morning. On 100% Vapotherm with sats in the mid 90s. Remains NPO. Reviewed imaging, no focal consolidation or findings of pneumonia. Urine culture pending. UA significant for UTI. Hospital Course Hospital Course: Patient was admitted, blood cultures were negative initially, but near the end of his stay 1 out of the 2 bottles did show positive gram-positive cocci but PCR testing was negative. Sputum grew Gram positive diplococci. Patient was adequately covered for these types of organisms with ceftriaxone and clindamycin. He defervesced. Oxygen requirement improved, and he was able to tolerate his tube feeds restarted yesterday at a low rate. He is at his baseline today in regards to his exam and respiratory status. Plan okay to discharge back to the [facility] today. He will maintain his DNR status. Tube feeds will begin at 25 mL/h, through the weekend. On Tuesday I would like these to go up by 10 mL/h on a daily basis until he is at his goal rate of 60 mL/h. He will also need Omnicef 300 twice daily for a week and clindamycin 300 3 times daily for a week given per his G-tube. Rounds will be per our regular rounds at the skilled nursing. Objective Vital signs: Temp Pulse Resp BP Pulse Ox 98.3 F 88 18 162/88 H 96 09/25/21 08:00 09/25/21 08:00 09/25/21 08:00 09/25/21 08:00 09/25/21 08:00 chronically ill appearing - *Routine HEENT Exam Head: Present: normocephalic Eye: Present: EOMI, PERRL ENT: Present: mucous membranes moist - *Routine Neck Exam Present: supple - *Routine Respiratory Exam Present: decreased breath sounds, rhonchi Comments: Rhonchi throughout but symmetric air entry. Oxygen requirement is vastly improved over admission - *Routine Cardiovascular Exam Present: RRR - *Routine Abdominal Exam Present: soft, normoactive bowel sounds. Absent: tenderness Comments: G-tube site is clean and intact. Abdomen soft. - *Routine Extremities Exam Absent: cyanosis, clubbing, edema - *Routine Skin Exam Present: warm. Absent: rash - *Routine Neurological Exam Present: altered mental status Responds very slowly to stimuli. Consistent with prior exams - Detailed Eye Exam Eyelids: Bilateral normal inspection Results Labs on day of discharge: Labs from last 24 hours 09/25/21 09/25/21 09/25/21 06:41 06:35 06:35 WBC 9.6 D RBC 3.44 L Hgb 11.2 L Hct 34.0 L MCV 98.9 H MCH 32.6 H MCHC 32.9 RDW 13.3 Plt Count 222 MPV 8.4 Neut % (Auto) 68.4 Lymph % (Auto) 18.7 [place] % (Auto) 7.5 Eos % (Auto) 4.9 Baso % (Auto) 0.6 Neut # (Auto) 6.6 Lymph # (Auto) 1.8 [place] # (Auto) 0.7 Eos # (Auto) 0.5 H Baso # (Auto) 0.1 Sodium 137 Potassium 3.6 D Chloride 103 Carbon Dioxide
[2021-09-25 09:00] VITALS: BMI 24.0
--- NOTE | 2021-09-25 09:09 | DIET.NUTRFU ---
Patients tubefeeding was up to 40ml over night with small residuals noted at 30ml and then at 40ml this AM. Nursing had turned off for short time and plans to recheck and restart at time of medpass. Provider plans to send back to [facility] today, they are familiar with TF regimen. Provider plans to keep it at slow rate through the weekend and then increase starting Tuesday to reach goal rate and provide 100% nutrition. BS still elevated with insulin in place. Hydration WNL. No other concerns at this time
--- NOTE | 2021-09-25 09:33 | PC.NURSE ---
Called report to [place]. Patient ready to discharge. Awaiting on covid swab result.
[2021-09-25 09:35] LABS: Coronavirus 19, PCR Not Detected (NotDetected); Influenza A, PCR Not Detected (NotDetected); Influenza B, PCR Not Detected (NotDetected)
--- NOTE | 2021-09-25 10:53 | PC.NURSE ---
Jennifer ferreira [place]ton made aware of patient's mrsa positive sputum result. Patient discharged before lab called with results
--- NOTE | 2021-09-25 10:53 | PC.NURSE ---
Spoke with nurse in office she was going to notify Dr. Lieberman. I told her that his sputum has MRSA he was sent home with clindamycin and cefdinir.
== END 2021-09-25 10:35 | DRG 871 ==
LOC: ER 09-22 00:59 → 2ND 09-22 10:14
PROVIDERS: Admitting Provider Internal Medicine Adolescent Medicine; Emergency Provider Emergency Medicine; PCP Internal Medicine Adolescent Medicine; Visit Provider Internal Medicine Adolescent Medicine
DX: A41.9 Sepsis, unspecified organism (principal); I21.4 Non-ST elevation (NSTEMI) myocardial infarction; J96.21 Acute and chronic respiratory failure with hypoxia; J69.0 Pneumonitis due to inhalation of food and vomit; N39.0 Urinary tract infection, site not specified; I69.354 Hemiplegia and hemiparesis following cerebral infarction affecting left non-dominant side; R65.20 Severe sepsis without septic shock; Z93.1 Gastrostomy status; L89.151 Pressure ulcer of sacral region, stage 1; E11.9 Type 2 diabetes mellitus without complications; E78.5 Hyperlipidemia, unspecified; Z66 Do not resuscitate; I25.10 Atherosclerotic heart disease of native coronary artery without angina pectoris; H01.009 Unspecified blepharitis unspecified eye, unspecified eyelid; Z79.4 Long term (current) use of insulin
CPT/HCPCS: 36415; 51702; 71045; 74018; 80048; 80053; 81001; 82803; 82962; 83605; 83735; 83880; 84145; 84439; 84443; 84484; 85007; 85025; 85651; 86140; 87040; 87070; 87077; 87086; 87186; 87205; 93005; 93306; 94640; 94761; 99285; C9803; J0696; U0003; U0005

== ENCOUNTER 2021-09-26 06:20 | Inpatient (IN) | payer MEDICARE, SELFPAY ==
[2021-09-26] VITALS (13 sets, daily range): BP systolic 100–178; BP diastolic 44–98; PULSE 90–125; RESP 22–28; TEMP 36.7–38.5; O2SAT 84–98; BMI 33.5; BMI 24.7
--- NOTE | 2021-09-26 06:02 | ECG_ITS ---
APPROVED REPORT Exam: Resting ECG HR:126 bpm ECG Measurements Heart Rate 126 AXES VT 163 P 68 QRSd 109 QRS 85 QT 320 T 65 QTc 395 Conclusion SINUS TACHYCARDIA WITH OCCASIONAL VENTRICULAR PREMATURE COMPLEXES WITH OCCASIONAL SUPRAVENTRICULAR PREMATURE COMPLEXES NONSPECIFIC T-WAVE ABNORMALITY ABNORMAL RHYTHM ECG UNCONFIRMED REPORT Electronically signed by : Hay Zambrano MD 09/28/2021 09:41:10
--- NOTE | 2021-09-26 06:03 | XR_ITS ---
PROCEDURE INFORMATION: Exam: XR Chest Exam date and time: 09/26/2021 6:05 AM Age: 70 years old Clinical indication: Shortness of breath; Additional info: SOA TECHNIQUE: Imaging protocol: XR of the chest. Views: 1 view. COMPARISON: CR XR CHEST PORTABLE 09/22/2021 7:14 AM FINDINGS: Lungs: Unremarkable. No consolidation. Pleural spaces: Unremarkable. No pleural effusion. No pneumothorax. Heart/Mediastinum: Unremarkable. No cardiomegaly. Bones/joints: Unremarkable. IMPRESSION: No acute findings.
[2021-09-26 06:21] LABS: Microscopic, Urine URINE MICROSCOPIC (MICROSCOPIC)
--- NOTE | 2021-09-26 06:22 | PC.NURSE ---
Dr. Michael on phone with LAURA
[2021-09-26 06:24] LABS: Basophils # 0.1 K/mm3 (0-0.2); Eosinophils # 0.1 K/mm3 (0.0-0.4); Eosinophils % 0.3 % (0.1-12.0); Hematocrit 39.3 % (42.0-52.0); Lymphocytes # 1.2 K/mm3 (0.7-4.5); Mean Corpuscular HGB Conc 33.4 g/dL (31.8-35.4); Red Blood Count 4.01 M/mm3 (4.60-6.20)
[2021-09-26 06:28] LABS: Appearance,Urine CLEAR (Clear); Blood, Urine Negative (Negative); Color,Urine DK YELLOW (Yellow); Glucose,Urine (UA) Negative (Negative); Ketones,Urine TRACE (Negative); Leukocyte Esterase,Urine TRACE (Negative); Nitrate,Urine Negative (Negative); Protein,Urine TRACE (Negative)
[2021-09-26 06:32] LABS: Alanine Aminotransferase 76 U/L (12-78); Albumin/Globulin Ratio 0.9 (1.1-1.8); Alkaline Phosphatase 289 U/L (38-126); Anion Gap 8.8 mEq/L (5-15); Aspartate Amino Transferase 62 U/L (17-59); Bilirubin,Total 0.8 mg/dl (0.2-1.3); Blood Urea Nitrogen 12 mg/dl (9-20); Calcium 8.4 mg/dl (8.4-10.2); Carbon Dioxide 30 mmol/L (22.0-30.0); Chloride 103 mmol/L (98-107); Creatinine Clearance Estimated 104 mL/min (50-200); Estimated Glomerular Filt Rate 164 ml/min (>60); GFR (African American) 198 ML/MIN (>60); Globulin 3.5 g/dL (1.3-3.2); Glucose 165 mg/dl (74-100); Lactic Acid 1.3 mmol/L (0.7-2.1); Potassium 3.8 mmoL/L (3.5-5.1); Sodium 138 mmol/L (136-145); Total Protein,Serum 6.5 g/dl (6.3-8.2)
[2021-09-26 06:33] LABS: Basophils % 0.6 % (0.1-2.0); Lymphocytes % 7.3 % (10-50); Mean Corpuscular Hemoglobin 32.7 pg (27.0-31.2); Mean Corpuscular Volume 97.8 fl (80-94); Mean Platelet Volume 8.1 fl (7.4-10.4); Monocytes # 0.9 K/mm3 (0.1-1.0); Monocytes % 5.6 % (1.7-9.3); Neutrophils # 14.3 K/mm3 (1.8-7.8); Neutrophils % 86.2 % (37.0-80.0); Platelet Count 310 K/mm3 (142-424); Red Cell Distribution Width 13.4 % (11.5-17.5); White Blood Count 16.5 K/mm3 (4.8-10.8)
[2021-09-26 06:35] LABS: MANUAL DIFFERENTIAL MANUAL DIFFERENTIAL (MANUAL DIFF)
[2021-09-26 06:36] LABS: VBG Base Excess 3.1 mmol/L (-2.4-2.3); VBG HCO3 27.2 mmol/L (23-30); VBG PCO2 40.9 mmol/L (35-51); VBG PH 7.44 mmol/L (7.31-7.41); VBG PO2 74.2 mmol/L (28-40); VBG Total CO2 28.5 mmol/L (23-27)
[2021-09-26 06:38] LABS: Bilirubin,Urine Negative (Negative)
--- NOTE | 2021-09-26 06:41 | HMH.EDGENADL ---
ED Disposition Clinical Impression: Respiratory distress Aspiration pneumonia Qualifiers: Aspiration pneumonia type: unspecified Laterality: unspecified laterality Lung location: unspecified part of lung Qualified Code(s): J69.0 - Pneumonitis due to inhalation of food and vomit Disposition: Admitted As Inpatient Condition on Discharge: patient admitted Referrals: Hay Zambrano MD [Primary Care Provider] - - Critical Care Critical Care Time: No Attestation: On 09/26/21, the high probability of a clinically significant, sudden or life threatening deterioration of the following system(s) required my full and direct attention, intervention and personal management. The time I documented below is in addition to time spent performing reported procedures but includes the following listed in this critical care notation. Medical Decision Making - Medical Records Medical records reviewed: Yes: I reviewed the patient's medical records. - Jose Inquiry Pt receiving controlled substance: No Vital Signs: 09/26/21 05:57 09/26/21 06:23 09/26/21 06:30 Temperature 101.3 F H Temperature Source Rectal Pulse Rate 121 H 96 H Pulse Rate [Right] 125 H Respiratory Rate 28 H Blood Pressure 100/44 L 122/58 L Blood Pressure [Right Arm] 178/98 H Blood Pressure Mean [Right Arm] 124 02 Sat by Pulse Oximetry 84 L 91 L 94 L Oxygen Delivery Method Nasal Cannula Oxygen Flow Rate (LPM) 6 09/26/21 07:10 09/26/21 07:30 Temperature Temperature Source Pulse Rate 110 H 109 H Pulse Rate [Right] Respiratory Rate Blood Pressure 143/75 H 153/84 H Blood Pressure [Right Arm] Blood Pressure Mean [Right Arm] 02 Sat by Pulse Oximetry 96 Oxygen Delivery Method Oxygen Flow Rate (LPM) - Lab Data Lab Results 09/26/21 06:10: WBC 16.5 H D, RBC 4.01 L, Hgb 13.1 L D, Hct 39.3 L, MCV 97.8 H, MCH 32.7 H, MCHC 33.4, RDW 13.4, Plt Count 310 D, MPV 8.1, Neut % (Auto) 86.2 H, Lymph % (Auto) 7.3 L, [place] % (Auto) 5.6, Eos % (Auto) 0.3, Baso % (Auto) 0.6, Neut # (Auto) 14.3 H, Lymph # (Auto) 1.2, [place] # (Auto) 0.9, Eos # (Auto) 0.1, Baso # (Auto) 0.1, Total Counted 100, Neutrophils % (Manual) 77 H, Band Neutrophils % 12.0 H, Lymphocytes % (Manual) 11, Platelet Estimate Normal, RBC Morphology Normal 09/26/21 06:10: Sodium 138, Potassium 3.8, Chloride 103, Carbon Dioxide 30, Anion Gap 8.8, BUN 12, Creatinine 0.50 L, Estimated Creat Clear 104, Estimated GFR 164, Est GFR ( Amer) 198, Glucose 165 H, Calcium 8.4, Total Bilirubin 0.8, AST 62 H D, ALT 76 D, Alkaline Phosphatase 289 H, Troponin I 0.16 H, Total Protein 6.5 D, Albumin 3.0 L, Globulin 3.5 H, Albumin/Globulin Ratio 0.9 L 09/26/21 06:10: Lactate 1.3 09/26/21 06:17: Urine Color Dk yellow, Urine Appearance Clear, Urine pH 7.0, Ur Specific [place] 1.020, Urine Protein Trace, Urine Glucose (UA) Negative, Urine Ketones Trace, Urine Blood Negative, Urine Nitrate Negative, Urine Bilirubin Negative, Urine Urobilinogen 4.0, Ur Leukocyte Esterase Trace, Urine RBC Occasional, Urine WBC 3-5, Ur Squamous Epith Cells Occasional, Urine Bacteria Trace 09/26/21 06:32: VBG pH 7.44 H, VBG pCO2 40.9, VBG pO2 74.2 H, VBG HCO3 27.2, VBG Total CO2 28.5 H, VBG O2 Saturation 95.0 H, VBG Base Excess 3.1 H Result diagrams: 09/26/21 06:10 09/26/21 06:10 Orders (Tests/Meds): ED MEDICATIONS Generic Name Dose Route Start Last Admin Trade Name Freq PRN Reason Stop Dose Admin Vancomycin HCl 2,000 mg/ 250 mls @ 125 mls/hr 09/26/21 06:45 Sodium Chloride IV 09/26/21 08:44 ONCE ONE Miscellaneous 1 each 09/26/21 06:30 09/26/21 06:44 Vancomycin Consult Request * 10/26/21 06:29 1 each CONSULT PHARMACY [facility] Administration Discontinued Medications Generic Name Dose Route Start Last Admin Trade Name Freq PRN Reason Stop Dose Admin Acetaminophen 650 mg 09/26/21 06:15 09/26/21 06:25 Acetaminophen 650mg Suppository RC 09/26/21 06:16 650 mg ONCE ONE Administra
[2021-09-26 06:43] LABS: Troponin I 0.16 ng/ml (0.00-0.034)
[2021-09-26 06:49] LABS: Lymphocytes % 11 % (10-50); Neutrophils % 77 % (42-76); Platelet Estimate Normal; RBC Morphology Normal; Total Cells Counted 100
[2021-09-26 06:56] LABS: Hemoglobin 13.1 g/dL (14.1-18.0)
[2021-09-26 06:57] LABS: Bacteria,Urine Trace /lpf; Squamous Epithelial Cell,Urine Occasional #/hpf (0-5)
[2021-09-26 06:59] LABS: RBC,Urine Occasional #/hpf (0-3)
--- NOTE | 2021-09-26 07:36 | PC.NURSE ---
Paged Dr Zambrano [phone]
--- NOTE | 2021-09-26 07:57 | PC.NURSE ---
paged Dr chaparro again as he hadn't returned page.
--- NOTE | 2021-09-26 08:13 | PC.NURSE ---
shankar returned call for admittance. called house for a bed for resp failure and pneumonia
--- NOTE | 2021-09-26 08:16 | HMH.PHACONS ---
- Pharmacy Consult Date: 09/26/21 Time: 08:16 Referring provider: DR. ANDINO Reason for Consult:: VANCOMYCIN DOSING Allergies and ADEs:: Allergies Allergy/AdvReac Type Severity Reaction Status Date / Time No Known Allergies Allergy Unverified 04/19/17 14:10 Home Medications:: Home Medications Medication Instructions Recorded Confirmed Type aspirin 81 mg tablet,delayed 81 mg G-TUBE DAILY 06/01/17 09/26/21 History release atorvastatin 80 mg tablet 80 mg G-TUBE HS 06/01/17 09/26/21 History Amlodipine Besylate [Norvasc 5mg 5 mg G-TUBE BID 09/21/21 09/26/21 History tablet] Gabapentin [Gabapentin 100mg Cap] 100 mg G-TUBE TID 09/21/21 09/26/21 History Insulin Aspart [Novolog Penfill] 0 unit SQ ACHS 09/21/21 09/26/21 History Insulin Glargine,Hum.rec.anlog 45 units SQ HS 09/21/21 09/26/21 History [Lantus Solostar 100 Units/mL 3mL flexpen] Lansoprazole [Prevacid] 30 mg G-TUBE HS 09/21/21 09/26/21 History Levothyroxine Sodium [Synthroid 25 mcg G-TUBE DAILY 09/21/21 09/26/21 History 25mcg (0.025mg) tablet] Acetaminophen [Acetaminophen Extra 1,000 mg G-TUBE Q6HP PRN 09/22/21 09/26/21 History Strength] Albuterol Sulfate [Albuterol 2.5 mg IH Q4HP PRN 09/22/21 09/26/21 History 0.083% 2.5mg/3mL neb] Clopidogrel Bisulfate [Plavix 75mg 75 mg G-TUBE DAILY 09/22/21 09/26/21 History Tab] Docusate Sodium [Stool Softener] 100 mg G-TUBE BIDP PRN 09/22/21 09/26/21 History Magnesium Hydroxide [Milk of 30 ml G-TUBE DAILYP PRN 09/22/21 09/26/21 History Magnesia 30mL Udc] Nystatin 10 ml G-TUBE QID 09/22/21 09/26/21 History Cefdinir [Omnicef 300mg Capsule] 300 mg PO BID 09/26/21 09/26/21 History clindamycin HCL [Clindamycin HCl] 300 mg G-TUBE TID 09/26/21 09/26/21 History Height: 1.8 m Weight: 108.862 kg Laboratory Results:: Laboratory Results - last 24 hr 09/26/21 06:10: WBC 16.5 H D, RBC 4.01 L, Hgb 13.1 L D, Hct 39.3 L, MCV 97.8 H, MCH 32.7 H, MCHC 33.4, RDW 13.4, Plt Count 310 D, MPV 8.1, Neut % (Auto) 86.2 H, Lymph % (Auto) 7.3 L, [place] % (Auto) 5.6, Eos % (Auto) 0.3, Baso % (Auto) 0.6, Neut # (Auto) 14.3 H, Lymph # (Auto) 1.2, [place] # (Auto) 0.9, Eos # (Auto) 0.1, Baso # (Auto) 0.1, Total Counted 100, Neutrophils % (Manual) 77 H, Band Neutrophils % 12.0 H, Lymphocytes % (Manual) 11, Platelet Estimate Normal, RBC Morphology Normal 09/26/21 06:10: Sodium 138, Potassium 3.8, Chloride 103, Carbon Dioxide 30, Anion Gap 8.8, BUN 12, Creatinine 0.50 L, Estimated Creat Clear 104, Estimated GFR 164, Est GFR ( Amer) 198, Glucose 165 H, Calcium 8.4, Total Bilirubin 0.8, AST 62 H D, ALT 76 D, Alkaline Phosphatase 289 H, Troponin I 0.16 H, Total Protein 6.5 D, Albumin 3.0 L, Globulin 3.5 H, Albumin/Globulin Ratio 0.9 L 09/26/21 06:10: Lactate 1.3 09/26/21 06:17: Urine Color Dk yellow, Urine Appearance Clear, Urine pH 7.0, Ur Specific [place] 1.020, Urine Protein Trace, Urine Glucose (UA) Negative, Urine Ketones Trace, Urine Blood Negative, Urine Nitrate Negative, Urine Bilirubin Negative, Urine Urobilinogen 4.0, Ur Leukocyte Esterase Trace, Urine RBC Occasional, Urine WBC 3-5, Ur Squamous Epith Cells Occasional, Urine Bacteria Trace 09/26/21 06:32: VBG pH 7.44 H, VBG pCO2 40.9, VBG pO2 74.2 H, VBG HCO3 27.2, VBG Total CO2 28.5 H, VBG O2 Saturation 95.0 H, VBG Base Excess 3.1 H Medical History: Reports:: Coronary Artery Disease, Depression, Diabetes Mellitus Type 2, Gastroesophageal Reflux Disease(GERD), Hyperlipidemia, Hypertension, Palpitations, Peripheral Artery Disease Assessment and Plan - Assessment and plan all Dx Assessment and Plan for all problems:: Pharmacokinetic dosing service Objective: Patient: Floor: Age: 70 yo Serum creatinine: 0.70 mg/dL Height: 70.9 Inches Weight (kg): 108.8 Assessment: IBW (kg): 75.07 Dosing wt(kg): 108.8 Estimated Creatinine clearance (ml
[2021-09-26 08:36] LABS: ABG HCO3 28.7 mmhg (22.0-26.0); ABG Oxygen Saturation 91 % (90-100); ABG PCO2 40.1 mmhg (35.0-45.0); ABG PH 7.47 mmol/L (7.35-7.45); ABG PO2 57.9 mmhg (80-100); ABG TCO2 29.9 mmhg (23-27)
[2021-09-26 09:04] LABS: Coronavirus 19, PCR Not Detected (NotDetected); Influenza A, PCR Not Detected (NotDetected); Influenza B, PCR Not Detected (NotDetected)
--- NOTE | 2021-09-26 09:18 | PC.NURSE ---
ATTEMPTED TO CALL REPORT WILL HAVE TO RETURN CALL IN PT'S ROOM
--- NOTE | 2021-09-26 09:19 | HMH.HP ---
*Admission Date: 09/26/21 *Chief complaint: Worsening hypoxia/respiratory distress *History of present illness: Medical Decision Narrative: 70-year-old male with history of prior stroke with left-sided weakness, G-tube dependent who is presenting to the ED with respiratory distress. Differential diagnoses include aspiration pneumonia, sepsis, respiratory failure, hypercapnia, COPD exacerbation, ACS. Given this work-up will include blood cultures, EKG, troponin, CMP, CBC, lactic acid, urine cultures, chest x-ray. Patient is febrile to 101 ?F, normotensive, tachycardic to the 110-120 range, oxygen saturation in the low 80s on 6 L nasal cannula. RT performed oral suctioning with improvement in his oxygen saturation, placed patient on high flow nasal cannula 40 L, 60% FiO2, tachypnea has improved and current oxygen saturation 97%. Gave 40 mg IV Lasix, Jose catheter is anchored. Suspect aspiration pneumonia. Starting IV Zosyn/vancomycin, giving 1 L of IV fluids. Lactate not elevated. Spoke to patient's [id number] who is his POA, she confirmed that he is DNR/DNI, however would like treatment with antibiotics rather than palliative care. Initial troponin elevated, will obtain second troponin I suspect this is due to demand ischemia given his hypoxia and tachycardia. Chest x-ray with no obvious consolidation. Patient appears much more comfortable on high flow nasal cannula, will speak with patient's primary physician for admission. General Adult HPI - General Chief complaint: Shortness of Breath/Dyspnea Stated complaint: SOA Time Seen by Provider: 09/26/21 06:41 Mode of Arrival: EMS Source of Information: EMS Limitations: Altered Mental Status Description of Symptoms (Recalled from ER Triage Doc. by RN): jail reports low 02 and coughing, sats 83% on 6L - History of Present Illness HPI narrative: 70-year-old male with history of prior CVA with left-sided deficits, G-tube dependent who is presenting to the ED with hypoxia, shortness of breath. [facility], he was recently discharged yesterday. He is having difficulty breathing therefore they called EMS. His oxygen saturation was 82 in route with EMS on 6 L nasal cannula. He has coarse, rhonchorous lung sounds with moderate to significant amount of oral secretions. After suctioning patient he has what appears to be G-tube secretions. He has a poor cough due to his prior stroke. He was febrile here in the ED with a temperature Above note per ER: Please note patient was discharged from [facility] yesterday to go back to [facility] after treatment for aspiration pneumonia. He had tolerated low-grade tube feeds here, and actually cleared his chest x-ray and respiratory distress had improved. Unfortunately it sounds like he had another aspiration event at the jail once G-tube feeds were restarted and transferred back with the above problems. [facility] History I have reviewed the patient's past medical history: Yes Medical History: Reports:: Coronary Artery Disease, Depression, Diabetes Mellitus Type 2, Gastroesophageal Reflux Disease(GERD), Hyperlipidemia, Hypertension, Palpitations, Peripheral Artery Disease *Have you ever received a pneumonia vaccine?: Yes *Have you received a flu vaccine this season?: Yes Other Surgeries: Yes: Angioplasty, Coronary Stent, Other (Retina Replacement) - *Social History Smoking Status: Never smoker Alcohol Intake: never *Occupational Status:: disabled *Travel in the last 8 weeks: None - Psychiatric History Pschychiatric History:: Reports:: Depression Family Hx:: Coronary Artery Disease, Heart Attack Review of Systems - Review of Systems Review of systems:: unable to obtain Meds Home Medications Medication Instructions Recorded Confirmed Type aspirin 81 mg tablet,delayed 81 mg G-TUBE DAILY 06/01/17 09/26/21 History release atorvastatin 80 mg tablet 80 mg G-TUBE HS 06/01/17
--- NOTE | 2021-09-26 09:53 | PC.NURSE ---
ARISTIDES SENT WITH PT TO FLOOR
[2021-09-26 10:15] LABS: Troponin I 0.23 ng/ml (0.00-0.034)
--- NOTE | 2021-09-26 10:50 | HMH.PHAINT ---
MEDICATION RECONCILIATION COMPLETED ON PATIENT USING DISCHARGE SUMMARY FROM YESTERDAY. -KEELEY CHOU, ANUJAD
--- NOTE | 2021-09-26 11:45 | PC.NURSE ---
pt arrived to floor via stretched @9:58
[2021-09-26 18:06] LABS: POC Glucose,Bedside 137 (70-110)
[2021-09-26 18:06] LABS: POC Glucose,Bedside 62 (70-110)
[2021-09-26 21:16] LABS: POC Glucose,Bedside 92 (70-110)
[2021-09-27] VITALS (7 sets, daily range): BP systolic 130–167; BP diastolic 68–83; PULSE 58–103; RESP 20–24; TEMP 36.7–38.4; O2SAT 88–98; BMI 25.0
--- NOTE | 2021-09-27 04:55 | PC.NURSE ---
Patient currently on vapotherm 40L/65%. Had to increase vapotherm during the shift from 40L/60% to the 40L/65%, O2 currently staying above 90%. Staff has been turning patient every two hours to prevent breakdown. Patient continues NPO status. Has had no c/o pain or discomfort. Patient continues on antibiotic therapy with no adverse reactions. Call light in place and working appropriately.
[2021-09-27 06:19] LABS: POC Glucose,Bedside 96 (70-110)
--- NOTE | 2021-09-27 09:39 | HMH.ACPN2 ---
Internal Medicine - PN: Subj *Date: 09/27/21 *Time: 09:39 Interval history: Patient remains obtunded and poorly responsive to tactile or verbal stimuli this morning. Respiratory parameters are slightly worse. Exam Vital signs and Labs for Last 24 Hours: Temp Pulse Resp BP Pulse Ox 99.0 F 103 H 22 167/80 H 92 L 09/27/21 08:00 09/27/21 08:00 09/27/21 08:00 09/27/21 08:00 09/27/21 08:00 Laboratory Results - last 24 hr 09/26/21 06:14: SARS-CoV-2 (PCR) Not detected, Influenza A Untype (PCR) Not detected, Influenza Type B (PCR) Not detected 09/26/21 09:47: Troponin I 0.23 H 09/26/21 16:59: POC Glucose 62 L 09/26/21 18:00: POC Glucose 137 H 09/26/21 20:18: POC Glucose 92 09/27/21 06:05: POC Glucose 96 I & O for Last 24 hours: Intake & Output 09/24/21 09/25/21 09/26/21 09/27/21 11:59 11:59 11:59 11:59 Intake Total 900 / 900 Output Total 1500 / 1500 1140 / 1140 Balance -1500 / -1500 -240 / -240 Weight 177 lb 4 oz 179 lb 3.2 oz Narrative: Head: Present: normocephalic Eye: Present: EOMI, PERRL ENT: Present: mucous membranes moist - *Routine Neck Exam Present: supple. Absent: lymphadenopathy - *Routine Respiratory Exam Present: decreased breath sounds, rales - *Routine Cardiovascular Exam Present: RRR, murmur - *Routine Abdominal Exam Present: soft, normoactive bowel sounds. Absent: tenderness Comments: GT site looks clean and intact Assessment and Plan (1) Aspiration pneumonia Status: Acute Qualifiers: Aspiration pneumonia type: unspecified Laterality: unspecified laterality Lung location: unspecified part of lung Qualified Code(s): J69.0 - Pneumonitis due to inhalation of food and vomit Category: Medical Code(s): J69.0 - Pneumonitis due to inhalation of food and vomit (2) Respiratory distress Status: Acute Category: Medical Code(s): R06.03 - Acute respiratory distress (3) Elevated troponin Status: Acute Category: Medical Code(s): R77.8 - Other specified abnormalities of plasma proteins (4) Gastrostomy tube in place Status: Acute Category: Medical Code(s): Z93.1 - Gastrostomy status (5) Respiratory failure with hypoxia Status: Acute Qualifiers: Chronicity: acute Qualified Code(s): J96.01 - Acute respiratory failure with hypoxia Category: Medical Code(s): J96.91 - Respiratory failure, unspecified with hypoxia - Assessment and plan all Dx Assessment and Plan for all problems:: Recurrent aspiration pneumonitis and pneumonia with worsening inflammation. Continue antibiotics and supportive care but I am very pessimistic about this patient's recovery.
[2021-09-27 11:41] LABS: POC Glucose,Bedside 119 (70-110)
--- NOTE | 2021-09-27 15:57 | PC.NURSE ---
PT IS RESTING IN BED. PT HAS BEEN OBTUNDED T/O THE SHIFT. PT HAS MINIMAL RESPONSE TO PAINFUL STIMULI. LUNG SOUNDS DIMINISHED WITH SCATTERED RHONCHI/CRACKLES. TURNED AND REPOSITIONED FREQUENTLY. ORAL CARE PROVIDED. REDNESS/SMALL OPEN AREAS NOTED TO THE BUTTOCKS. O2 SATURATION HAS MAINTAINED 90-92% ON ON VAPOTHERM AT 65% FIO2 40 L. PT HAD ONLY 50 ML'S OF DARK UOP SINCE 0800 THIS MORNING. WILL CONTINUE TO MONITOR.
--- NOTE | 2021-09-27 17:05 | PC.WOUNDNOTE ---
REDNESS/OPEN AREAS NOTED TO BUTTOCKS
[2021-09-27 17:07] LABS: POC Glucose,Bedside 145 (70-110)
[2021-09-27 21:30] LABS: Vancomycin,Trough 35.5 ug/mL (5.0-10.0)
[2021-09-27 21:33] LABS: POC Glucose,Bedside 126 (70-110)
--- NOTE | 2021-09-27 21:35 | PC.NURSE ---
Received vanc trough 35.5, called Night watch and reported to [place]. per Night watch hold tonight's dose.
[2021-09-28] VITALS (7 sets, daily range): BP systolic 130–160; BP diastolic 67–75; PULSE 68–91; RESP 16–20; TEMP 36.3–36.9; O2SAT 91–100; BMI 25.2
[2021-09-28 01:15] LABS: Vancomycin,Peak 40.3 ug/ml (11-39)
--- NOTE | 2021-09-28 04:20 | PC.NURSE ---
Patient has rested intermittently throughout shift. Pt has been q2H turn, and oral care provided. Dressing to bottom are C/D/I. Urine output has been 50ml thus far in shift. Vapotherm remains at 30L, 65% with O2 sats 91-99%.
[2021-09-28 06:02] LABS: Basophils # 0.1 K/mm3 (0-0.2); Basophils % 0.6 % (0.1-2.0); Eosinophils # 0.3 K/mm3 (0.0-0.4); Eosinophils % 1.8 % (0.1-12.0); Hematocrit 30.1 % (42.0-52.0); Hemoglobin 10.1 g/dL (14.1-18.0); Lymphocytes # 1.4 K/mm3 (0.7-4.5); Lymphocytes % 8.2 % (10-50); Mean Corpuscular HGB Conc 33.5 g/dL (31.8-35.4); Mean Corpuscular Hemoglobin 32.8 pg (27.0-31.2); Mean Corpuscular Volume 97.7 fl (80-94); Mean Platelet Volume 8.5 fl (7.4-10.4); Monocytes # 2.1 K/mm3 (0.1-1.0); Monocytes % 12.1 % (1.7-9.3); Neutrophils # 13.2 K/mm3 (1.8-7.8); Neutrophils % 77.3 % (37.0-80.0); Platelet Count 236 K/mm3 (142-424); Red Blood Count 3.08 M/mm3 (4.60-6.20); Red Cell Distribution Width 13.8 % (11.5-17.5)
[2021-09-28 06:05] LABS: MANUAL DIFFERENTIAL MANUAL DIFFERENTIAL (MANUAL DIFF)
[2021-09-28 06:07] LABS: POC Glucose,Bedside 149 (70-110)
[2021-09-28 06:22] LABS: Lymphocytes % 8 % (10-50); Monocytes % 8 % (2-9); Neutrophils % 84 % (42-76); Total Cells Counted 100
[2021-09-28 06:23] LABS: Anisocytosis 1+; Macrocytosis 1+; Platelet Estimate Normal; Poikilocytosis 1+
[2021-09-28 06:39] LABS: Alanine Aminotransferase 35 U/L (12-78); Albumin Level 2.3 g/dl (3.5-5.0); Albumin/Globulin Ratio 0.8 (1.1-1.8); Alkaline Phosphatase 152 U/L (38-126); Anion Gap 14.4 mEq/L (5-15); Aspartate Amino Transferase 56 U/L (17-59); Bilirubin,Total 0.6 mg/dl (0.2-1.3); Blood Urea Nitrogen 31 mg/dl (9-20); Calcium 7.8 mg/dl (8.4-10.2); Carbon Dioxide 24 mmol/L (22.0-30.0); Chloride 107 mmol/L (98-107); Creatinine Clearance Estimated 26 mL/min (50-200); Estimated Glomerular Filt Rate 21 ml/min (>60); GFR (African American) 25 ML/MIN (>60); Globulin 2.9 g/dL (1.3-3.2); Glucose 141 mg/dl (74-100); Potassium 4.4 mmoL/L (3.5-5.1); Sodium 141 mmol/L (136-145); Total Protein,Serum 5.2 g/dl (6.3-8.2)
--- NOTE | 2021-09-28 09:01 | HMH.PHACONS ---
- Pharmacy Consult Date: 09/28/21 Time: 09:01 Referring provider: DR. BURRIS Reason for Consult:: VANCOMYCIN TROUGH AND PEAK LEVELS Allergies and ADEs:: Allergies Allergy/AdvReac Type Severity Reaction Status Date / Time No Known Allergies Allergy Unverified 04/19/17 14:10 Home Medications:: Home Medications Medication Instructions Recorded Confirmed Type aspirin 81 mg tablet,delayed 81 mg G-TUBE DAILY 06/01/17 09/26/21 History release atorvastatin 80 mg tablet 80 mg G-TUBE HS 06/01/17 09/26/21 History Amlodipine Besylate [Norvasc 5mg 5 mg G-TUBE BID 09/21/21 09/26/21 History tablet] Gabapentin [Gabapentin 100mg Cap] 100 mg G-TUBE TID 09/21/21 09/26/21 History Insulin Aspart [Novolog Penfill] 0 unit SQ ACHS 09/21/21 09/26/21 History Insulin Glargine,Hum.rec.anlog 45 units SQ HS 09/21/21 09/26/21 History [Lantus Solostar 100 Units/mL 3mL flexpen] Lansoprazole [Prevacid] 30 mg G-TUBE HS 09/21/21 09/26/21 History Levothyroxine Sodium [Synthroid 25 mcg G-TUBE DAILY 09/21/21 09/26/21 History 25mcg (0.025mg) tablet] Acetaminophen [Acetaminophen Extra 1,000 mg G-TUBE Q6HP PRN 09/22/21 09/26/21 History Strength] Albuterol Sulfate [Albuterol 2.5 mg IH Q4HP PRN 09/22/21 09/26/21 History 0.083% 2.5mg/3mL neb] Clopidogrel Bisulfate [Plavix 75mg 75 mg G-TUBE DAILY 09/22/21 09/26/21 History Tab] Docusate Sodium [Stool Softener] 100 mg G-TUBE BIDP PRN 09/22/21 09/26/21 History Magnesium Hydroxide [Milk of 30 ml G-TUBE DAILYP PRN 09/22/21 09/26/21 History Magnesia 30mL Udc] Nystatin 10 ml G-TUBE QID 09/22/21 09/26/21 History Cefdinir [Omnicef 300mg Capsule] 300 mg PO BID 09/26/21 09/26/21 History clindamycin HCL [Clindamycin HCl] 300 mg G-TUBE TID 09/26/21 09/26/21 History Height: 1.8 m Weight: 81.703 kg Laboratory Results:: Laboratory Results - last 24 hr 09/27/21 11:27: POC Glucose 119 H 09/27/21 16:56: POC Glucose 145 H 09/27/21 20:30: Vancomycin Trough 35.5 H 09/27/21 21:19: POC Glucose 126 H 09/28/21 00:40: Vancomycin Peak 40.3 H* 09/28/21 05:48: WBC 17.0 H, RBC 3.08 L, Hgb 10.1 L, Hct 30.1 L, MCV 97.7 H, MCH 32.8 H, MCHC 33.5, RDW 13.8, Plt Count 236, MPV 8.5, Neut % (Auto) 77.3, Lymph % (Auto) 8.2 L, [place] % (Auto) 12.1 H, Eos % (Auto) 1.8, Baso % (Auto) 0.6, Neut # (Auto) 13.2 H, Lymph # (Auto) 1.4, [place] # (Auto) 2.1 H, Eos # (Auto) 0.3, Baso # (Auto) 0.1, Total Counted 100, Neutrophils % (Manual) 84 H, Lymphocytes % (Manual) 8 L, Monocytes % (Manual) 8, Platelet Estimate Normal, Poikilocytosis 1+, Anisocytosis 1+, Macrocytosis 1+ 09/28/21 05:48: Sodium 141, Potassium 4.4, Chloride 107, Carbon Dioxide 24, Anion Gap 14.4, BUN 31 H D, Creatinine 3.00 H D, Estimated Creat Clear 26, Estimated GFR 21 L, Est GFR ( Amer) 25 L D, Glucose 141 H, Calcium 7.8 L, Total Bilirubin 0.6, AST 56, ALT 35 D, Alkaline Phosphatase 152 H, Total Protein 5.2 L, Albumin 2.3 L, Globulin 2.9, Albumin/Globulin Ratio 0.8 L 09/28/21 05:55: POC Glucose 149 H Medical History: Reports:: Coronary Artery Disease, Depression, Diabetes Mellitus Type 2, Gastroesophageal Reflux Disease(GERD), Hyperlipidemia, Hypertension, Palpitations, Peripheral Artery Disease Denies:: Cancer, Diabetes Mellitus Type 1, MRSA Assessment and Plan (1) Aspiration pneumonia Status: Acute Qualifiers: Aspiration pneumonia type: unspecified Laterality: unspecified laterality Lung location: unspecified part of lung Qualified Code(s): J69.0 - Pneumonitis due to inhalation of food and vomit Category: Medical Code(s): J69.0 - Pneumonitis due to inhalation of food and vomit (2) Respiratory distress Status: Acute Category: Medical Code(s): R06.03 - Acute respiratory distress (3) Elevated troponin Status: Acute Category: Medical Code(s): R77.8 - Other specified abnormalities of plasma proteins (4) Gastrostomy tube in place Status: Acute Category: Medical Code(s): Z93.1 - Gastrostomy status
--- NOTE | 2021-09-28 09:09 | HMH.ACPN2 ---
Internal Medicine - PN: Subj *Date: 09/28/21 *Time: 09:09 Interval history: Patient remains poorly responsive. Vital sign parameters remain abnormal, continues to be reliant on Vapotherm. Exam Vital signs and Labs for Last 24 Hours: Temp Pulse Resp BP Pulse Ox 97.8 F 90 16 150/74 H 99 09/28/21 08:00 09/28/21 08:00 09/28/21 08:00 09/28/21 08:00 09/28/21 08:00 Laboratory Results - last 24 hr 09/27/21 11:27: POC Glucose 119 H 09/27/21 16:56: POC Glucose 145 H 09/27/21 20:30: Vancomycin Trough 35.5 H 09/27/21 21:19: POC Glucose 126 H 09/28/21 00:40: Vancomycin Peak 40.3 H* 09/28/21 05:48: WBC 17.0 H, RBC 3.08 L, Hgb 10.1 L, Hct 30.1 L, MCV 97.7 H, MCH 32.8 H, MCHC 33.5, RDW 13.8, Plt Count 236, MPV 8.5, Neut % (Auto) 77.3, Lymph % (Auto) 8.2 L, [place] % (Auto) 12.1 H, Eos % (Auto) 1.8, Baso % (Auto) 0.6, Neut # (Auto) 13.2 H, Lymph # (Auto) 1.4, [place] # (Auto) 2.1 H, Eos # (Auto) 0.3, Baso # (Auto) 0.1, Total Counted 100, Neutrophils % (Manual) 84 H, Lymphocytes % (Manual) 8 L, Monocytes % (Manual) 8, Platelet Estimate Normal, Poikilocytosis 1+, Anisocytosis 1+, Macrocytosis 1+ 09/28/21 05:48: Sodium 141, Potassium 4.4, Chloride 107, Carbon Dioxide 24, Anion Gap 14.4, BUN 31 H D, Creatinine 3.00 H D, Estimated Creat Clear 26, Estimated GFR 21 L, Est GFR ( Amer) 25 L D, Glucose 141 H, Calcium 7.8 L, Total Bilirubin 0.6, AST 56, ALT 35 D, Alkaline Phosphatase 152 H, Total Protein 5.2 L, Albumin 2.3 L, Globulin 2.9, Albumin/Globulin Ratio 0.8 L 09/28/21 05:55: POC Glucose 149 H I & O for Last 24 hours: Intake & Output 09/25/21 09/26/21 09/27/21 09/28/21 11:59 11:59 11:59 11:59 Intake Total 900 / 900 100 / 100 Output Total 1500 / 1500 1140 / 1140 200 / 200 Balance -1500 / -1500 -240 / -240 -100 / -100 Weight 177 lb 4 oz 179 lb 3.2 oz 180 lb 2 oz Microbiology Reports for the Last 24 Hours: Microbiology 09/26/21 06:10 Blood Blood Culture - Preliminary NO GROWTH AFTER 48 HOURS 09/26/21 06:10 Blood Blood Culture - Preliminary NO GROWTH AFTER 48 HOURS 09/27/21 15:09 Sputum - Expectorated Sputum Gram Stain - Final 09/27/21 15:09 Sputum - Expectorated Sputum Sputum Culture - Final Narrative: Minimally responsive, he will open his left eye. No meaningful verbal communication. Lungs have rhonchi and crackles bilaterally. Heart rate regular. Extremities are cool but not mottled. Abdomen is soft. Does not move extremities spontaneously. Jose catheter draining very dark urine Assessment and Plan (1) Aspiration pneumonia Status: Acute Qualifiers: Aspiration pneumonia type: unspecified Laterality: unspecified laterality Lung location: unspecified part of lung Qualified Code(s): J69.0 - Pneumonitis due to inhalation of food and vomit Category: Medical Code(s): J69.0 - Pneumonitis due to inhalation of food and vomit (2) Respiratory distress Status: Acute Category: Medical Code(s): R06.03 - Acute respiratory distress (3) Elevated troponin Status: Acute Category: Medical Code(s): R77.8 - Other specified abnormalities of plasma proteins (4) Gastrostomy tube in place Status: Acute Category: Medical Code(s): Z93.1 - Gastrostomy status (5) Respiratory failure with hypoxia Status: Acute Qualifiers: Chronicity: acute Qualified Code(s): J96.01 - Acute respiratory failure with hypoxia Category: Medical Code(s): J96.91 - Respiratory failure, unspecified with hypoxia (6) Acute kidney injury Status: Acute Category: Medical Code(s): N17.9 - Acute kidney failure, unspecified - Assessment and plan all Dx Assessment and Plan for all problems:: Very poor response to aggressive antibiotic therapy. Now has evidence of acute kidney injury, vancomycin has been held. Certainly this could be antibiotic related versus consequence of his sepsis. We will give Lasix today
[2021-09-28 12:00] LABS: POC Glucose,Bedside 150 (70-110)
--- NOTE | 2021-09-28 13:07 | DIET.NUTRFU ---
TF on hold, labs elevated and on Vapotherm. When medically feasible consult RD for TF recommendations. Was tolerating glucerna at 30ml/hr upon discharge on 09/25, recommend to start at 20ml/hr when medically feasible.
[2021-09-28 17:17] LABS: POC Glucose,Bedside 152 (70-110)
[2021-09-28 20:28] LABS: POC Glucose,Bedside 146 (70-110)
[2021-09-29] VITALS: BP 131/65; PULSE 90; RESP 16; TEMP 37.1; O2SAT 93
[2021-09-29 04:00] VITALS: BP 145/74; PULSE 93; RESP 16; TEMP 37.1; O2SAT 93
[2021-09-29 04:57] VITALS: BMI 24.2
--- NOTE | 2021-09-29 06:40 | PC.NURSE ---
Pt resting all night. Remained on ra all night. Sats above90%. Jose cath intact and draining clear yellow fluid. occasional cough. appeared comfortable.
[2021-09-29 06:50] LABS: Basophils # 0.1 K/mm3 (0-0.2); Basophils % 0.7 % (0.1-2.0); Eosinophils # 0.5 K/mm3 (0.0-0.4); Hematocrit 30.4 % (42.0-52.0); Hemoglobin 10.1 g/dL (14.1-18.0); Lymphocytes # 1.4 K/mm3 (0.7-4.5); Lymphocytes % 11.1 % (10-50); Mean Corpuscular HGB Conc 33.3 g/dL (31.8-35.4); Mean Corpuscular Hemoglobin 32.5 pg (27.0-31.2); Mean Corpuscular Volume 97.8 fl (80-94); Mean Platelet Volume 8.5 fl (7.4-10.4); Monocytes # 0.8 K/mm3 (0.1-1.0); Monocytes % 6.2 % (1.7-9.3); Neutrophils # 9.6 K/mm3 (1.8-7.8); Platelet Count 270 K/mm3 (142-424); Red Blood Count 3.11 M/mm3 (4.60-6.20); Red Cell Distribution Width 13.8 % (11.5-17.5); White Blood Count 12.4 K/mm3 (4.8-10.8)
[2021-09-29 06:54] LABS: Alanine Aminotransferase 35 U/L (12-78); Albumin Level 2.5 g/dl (3.5-5.0); Albumin/Globulin Ratio 0.8 (1.1-1.8); Alkaline Phosphatase 171 U/L (38-126); Anion Gap 17.6 mEq/L (5-15); Aspartate Amino Transferase 46 U/L (17-59); Bilirubin,Total 0.4 mg/dl (0.2-1.3); Blood Urea Nitrogen 43 mg/dl (9-20); Calcium 7.7 mg/dl (8.4-10.2); Carbon Dioxide 21 mmol/L (22.0-30.0); Chloride 106 mmol/L (98-107); Creatinine Clearance Estimated 15 mL/min (50-200); Estimated Glomerular Filt Rate 12 ml/min (>60); GFR (African American) 14 ML/MIN (>60); Globulin 3.1 g/dL (1.3-3.2); Glucose 167 mg/dl (74-100); Potassium 3.6 mmoL/L (3.5-5.1); Sodium 141 mmol/L (136-145); Total Protein,Serum 5.6 g/dl (6.3-8.2)
--- NOTE | 2021-09-29 07:33 | XR_ITS ---
FINAL REPORT CLINICAL HISTORY: shortness of breath COMPARISON: September 26, 2021 FINDINGS: A single portable view of the chest was obtained. The heart size and pulmonary vascularity are within normal limits. The mediastinum is within normal limits. There is worsening opacity in the left lower thorax, favor pleural effusion. Right lung is clear. The bony thorax is intact. IMPRESSION: Worsening opacity in the left lower thorax, favor pleural effusion. Dedicated PA and lateral radiograph may be helpful. Reviewed, Interpreted and Dictated by Abran Roca III, MD Transcribed by Anu Hinkle Authenticated by Abran Roca III, MD on 09/29/2021 08:39:59 AM [facility]
--- NOTE | 2021-09-29 07:34 | HMH.ACPN2 ---
Internal Medicine - PN: Subj *Date: 09/29/21 *Time: 09:44 Interval history: Patient has weaned off oxygen completely in the past 24 hours. Remains afebrile. Stable on room air. Making light yellow urine, Jose in place. Interactive this morning. Small bowel movement last night. Exam Vital signs and Labs for Last 24 Hours: Temp Pulse Resp BP Pulse Ox 98.7 F 93 H 16 145/74 H 93 L 09/29/21 04:00 09/29/21 04:00 09/29/21 04:00 09/29/21 04:00 09/29/21 04:00 Laboratory Results - last 24 hr 09/28/21 11:51: POC Glucose 150 H 09/28/21 17:08: POC Glucose 152 H 09/28/21 20:19: POC Glucose 146 H 09/29/21 06:03: WBC 12.4 H D, RBC 3.11 L, Hgb 10.1 L, Hct 30.4 L, MCV 97.8 H, MCH 32.5 H, MCHC 33.3, RDW 13.8, Plt Count 270, MPV 8.5, Neut % (Auto) 78.0, Lymph % (Auto) 11.1, [place] % (Auto) 6.2, Eos % (Auto) 4.0, Baso % (Auto) 0.7, Neut # (Auto) 9.6 H, Lymph # (Auto) 1.4, [place] # (Auto) 0.8, Eos # (Auto) 0.5 H, Baso # (Auto) 0.1 09/29/21 06:03: Sodium 141, Potassium 3.6, Chloride 106, Carbon Dioxide 21 L, Anion Gap 17.6 H, BUN 43 H D, Creatinine 4.90 H D, Estimated Creat Clear 15, Estimated GFR 12 L*, Est GFR ( Amer) 14 L* D, Glucose 167 H, Calcium 7.7 L, Total Bilirubin 0.4, AST 46, ALT 35, Alkaline Phosphatase 171 H, Total Protein 5.6 L, Albumin 2.5 L, Globulin 3.1, Albumin/Globulin Ratio 0.8 L I & O for Last 24 hours: Intake & Output 09/26/21 09/27/21 09/28/21 09/29/21 23:59 23:59 23:59 23:59 Intake Total 450 / 450 450 / 450 100 / 100 Output Total 1800 / 1800 890 / 890 150 / 450 300 / 300 Balance -1350 / -1350 -440 / -440 -50 / -350 -300 / -300 Weight 80.399 kg 81.284 kg 81.7 kg 78.471 kg Microbiology Reports for the Last 24 Hours: Microbiology 09/26/21 06:10 Blood Blood Culture - Preliminary NO GROWTH AFTER 48 HOURS 09/26/21 06:10 Blood Blood Culture - Preliminary NO GROWTH AFTER 48 HOURS Narrative: - Constitutional Minimal distress, chronically ill appearing - *Routine HEENT Exam Head: Present: normocephalic Eye: Present: EOMI, PERRL ENT: Present: mucous membranes moist - *Routine Neck Exam Present: supple. Absent: lymphadenopathy - *Routine Respiratory Exam Present: decreased breath sounds, diffuse rhonchi, no wheeze. - *Routine Cardiovascular Exam Present: RRR, murmur - *Routine Abdominal Exam Present: soft, normoactive bowel sounds. Absent: tenderness Comments: GT site looks clean and intact - *Routine Extremities Exam Present: edema. Absent: cyanosis, clubbing - *Routine Skin Exam Present: warm. Absent: rash - *Routine Neurological Exam Present: alert, oriented to self. Assessment and Plan (1) Aspiration pneumonia Status: Acute Qualifiers: Aspiration pneumonia type: unspecified Laterality: unspecified laterality Lung location: unspecified part of lung Qualified Code(s): J69.0 - Pneumonitis due to inhalation of food and vomit Category: Medical Code(s): J69.0 - Pneumonitis due to inhalation of food and vomit (2) Respiratory distress Status: Acute Category: Medical Code(s): R06.03 - Acute respiratory distress (3) Elevated troponin Status: Acute Category: Medical Code(s): R77.8 - Other specified abnormalities of plasma proteins (4) Gastrostomy tube in place Status: Acute Category: Medical Code(s): Z93.1 - Gastrostomy status (5) Respiratory failure with hypoxia Status: Acute Qualifiers: Chronicity: acute Qualified Code(s): J96.01 - Acute respiratory failure with hypoxia Category: Medical Code(s): J96.91 - Respiratory failure, unspecified with hypoxia (6) Acute kidney injury Status: Acute Category: Medical Code(s): N17.9 - Acute kidney failure, unspecified - Assessment and plan all Dx Assessment and Plan for all problems:: 70-year-old male who is PEG tube dependent, residual left-sided hemiparesis, hypertension, diabetes who presented
[2021-09-29 07:59] LABS: Vancomycin,Trough 38.2 ug/mL (5.0-10.0)
[2021-09-29 08:00] VITALS: BP 152/78; PULSE 91; RESP 14; TEMP 36.7; O2SAT 94
--- NOTE | 2021-09-29 08:32 | PC.NURSE ---
on 09/28/2021 at 1700 this nurse went in to check on patient and patient did not have on Oxygen NC Vapotherm, I immediately checked O2 sat and it was 94% RA. No s/s/ of acute distress noted. Continued monitoring patient.
--- NOTE | 2021-09-29 08:48 | PC.NURSE ---
Dr. Lieberman and Yevgeniy Casey,pharmacist aware of critical vanc trough and creatinine of 4.9. IVF's ordered per mar.
--- NOTE | 2021-09-29 09:29 | SW/DCPLANNER ---
Addendum entered by Pavithra Brule 10/01/21 15:44: Hospice is currently here to evaluate this patient. Addendum entered by Pavithra Brule 10/01/21 10:22: Patient information has been faxed to [facility]. I will follow up with Fadia once patient information is reviewed. Public Health Representative (Glory Pimentel) spoke with [id number] regarding situation. Fadia will call [id number] once time is arranged for Hospice nurse to evaluate this patient. Addendum entered by Pavithra Brule 09/30/21 09:48: Updated patient information has been faxed to [facility]. Original Note: This patient currently resides at [facility]. I spoke with Kenia at [facility] and she stated that patient is currently SNF level of care. I will continue to follow up with Kenia until patient is medically stable for discharge. Updated patient information will be faxed to [facility].
--- NOTE | 2021-09-29 10:04 | P.PN_ITS ---
Internal Medicine - PN: Subj *Date: 09/29/21 *Time: 10:04 Exam Vital signs and Labs for Last 24 Hours: Temp Pulse Resp BP Pulse Ox 98.1 F 91 H 14 152/78 H 94 L 09/29/21 08:00 09/29/21 08:00 09/29/21 08:00 09/29/21 08:00 09/29/21 08:00 Laboratory Results - last 24 hr 09/28/21 11:51: POC Glucose 150 H 09/28/21 17:08: POC Glucose 152 H 09/28/21 20:19: POC Glucose 146 H 09/29/21 06:00: Vancomycin Trough 38.2 H 09/29/21 06:03: WBC 12.4 H D, RBC 3.11 L, Hgb 10.1 L, Hct 30.4 L, MCV 97.8 H, MCH 32.5 H, MCHC 33.3, RDW 13.8, Plt Count 270, MPV 8.5, Neut % (Auto) 78.0, Lymph % (Auto) 11.1, [place] % (Auto) 6.2, Eos % (Auto) 4.0, Baso % (Auto) 0.7, Neut # (Auto) 9.6 H, Lymph # (Auto) 1.4, [place] # (Auto) 0.8, Eos # (Auto) 0.5 H, Baso # (Auto) 0.1 09/29/21 06:03: Sodium 141, Potassium 3.6, Chloride 106, Carbon Dioxide 21 L, Anion Gap 17.6 H, BUN 43 H D, Creatinine 4.90 H D, Estimated Creat Clear 15, Estimated GFR 12 L*, Est GFR ( Amer) 14 L* D, Glucose 167 H, Calcium 7.7 L, Total Bilirubin 0.4, AST 46, ALT 35, Alkaline Phosphatase 171 H, Total Protein 5.6 L, Albumin 2.5 L, Globulin 3.1, Albumin/Globulin Ratio 0.8 L I & O for Last 24 hours: Intake & Output 09/26/21 09/27/21 09/28/21 09/29/21 23:59 23:59 23:59 23:59 Intake Total 450 / 450 450 / 450 100 / 100 Output Total 1800 / 1800 890 / 890 150 / 450 300 / 300 Balance -1350 / -1350 -440 / -440 -50 / -350 -300 / -300 Weight 80.399 kg 81.284 kg 81.7 kg 78.471 kg Microbiology Reports for the Last 24 Hours: Microbiology 09/26/21 06:10 Blood Blood Culture - Preliminary NO GROWTH AFTER 48 HOURS 09/26/21 06:10 Blood Blood Culture - Preliminary NO GROWTH AFTER 48 HOURS Assessment and Plan (1) Aspiration pneumonia Status: Acute Qualifiers: Aspiration pneumonia type: unspecified Laterality: unspecified laterality Lung location: unspecified part of lung Qualified Code(s): J69.0 - Pneumonitis due to inhalation of food and vomit Category: Medical Code(s): J69.0 - Pneumonitis due to inhalation of food and vomit (2) Respiratory distress Status: Acute Category: Medical Code(s): R06.03 - Acute respiratory distress (3) Elevated troponin Status: Acute Category: Medical Code(s): R77.8 - Other specified abnormalities of plasma proteins (4) Gastrostomy tube in place Status: Acute Category: Medical Code(s): Z93.1 - Gastrostomy status (5) Respiratory failure with hypoxia Status: Acute Qualifiers: Chronicity: acute Qualified Code(s): J96.01 - Acute respiratory failure with hypoxia Category: Medical Code(s): J96.91 - Respiratory failure, unspecified with hypoxia (6) Acute kidney injury Status: Acute Category: Medical Code(s): N17.9 - Acute kidney failure, unspecified The patient's infection will respond to the chosen ABx?: Yes (BLOOD CULTURE = NO GROWTH, SPUTUM = INSUFFICIENT FOR CULTURE, REORDERED) Is the patient receiving the right drug, dose, and route?: Yes Could a more targeted ABx be ordered?: No (ABX ON HOLD DUE TO NETTA)
--- NOTE | 2021-09-29 10:14 | DIET.NUTRFU ---
Patient's TF are still on hold. He is receiving meds and flush via TF. IVF in place. Renal; labs are worse at 42H/Cr 4.9H. Will continue to monitor when TF is feasible. Last BM noted 09/28. Will continue to follow
[2021-09-29 12:00] VITALS: BP 140/79; PULSE 85; RESP 20; TEMP 36.4; O2SAT 95
[2021-09-29 16:00] VITALS: BP 154/63; PULSE 79; RESP 22; TEMP 37.1; O2SAT 94
[2021-09-29 16:55] LABS: POC Glucose,Bedside 142 (70-110)
[2021-09-29 16:55] LABS: POC Glucose,Bedside 160 (70-110)
[2021-09-29 20:00] VITALS: BP 164/93; PULSE 82; RESP 26; TEMP 36.6; O2SAT 91
[2021-09-29 20:19] LABS: POC Glucose,Bedside 163 (70-110)
[2021-09-29 20:36] LABS: POC Glucose,Bedside 149 (70-110)
[2021-09-30] VITALS (7 sets, daily range): BP systolic 132–171; BP diastolic 66–78; PULSE 60–90; RESP 17–26; TEMP 36.4–37.5; O2SAT 92–94; BMI 24.5
[2021-09-30 06:32] LABS: POC Glucose,Bedside 150 (70-110)
[2021-09-30 07:27] LABS: Chloride 106 mmol/L (98-107); Potassium 3.6 mmoL/L (3.5-5.1); Sodium 140 mmol/L (136-145)
[2021-09-30 07:30] LABS: Anion Gap 15.6 mEq/L (5-15); Blood Urea Nitrogen 50 mg/dl (9-20); Calcium 7.7 mg/dl (8.4-10.2); Carbon Dioxide 22 mmol/L (22.0-30.0); Creatinine Clearance Estimated 12 mL/min (50-200); Estimated Glomerular Filt Rate 8 ml/min (>60); GFR (African American) 10 ML/MIN (>60); Glucose 158 mg/dl (74-100)
--- NOTE | 2021-09-30 08:06 | DIET.NUTRFU ---
RD rounded with provider today, agreed to start TF Glucerna 10ml/hr and monitor tolerance. Labs reviewed: BUN 50, Cr 6.60. Received IV yesterday.
--- NOTE | 2021-09-30 08:14 | HMH.ACPN2 ---
Internal Medicine - PN: Subj *Date: 09/30/21 *Time: 08:14 Interval history: Patient remains obtunded, poor air movement. However he is requiring no oxygen. Remains with diminished but present urine output Exam Vital signs and Labs for Last 24 Hours: Temp Pulse Resp BP Pulse Ox 97.9 F 81 17 161/73 H 92 L 09/30/21 07:36 09/30/21 07:36 09/30/21 07:36 09/30/21 07:36 09/30/21 07:36 Laboratory Results - last 24 hr 09/29/21 06:28: POC Glucose 160 H 09/29/21 11:30: POC Glucose 142 H 09/29/21 16:18: POC Glucose 163 H 09/29/21 20:28: POC Glucose 149 H 09/30/21 05:25: POC Glucose 150 H 09/30/21 05:38: Sodium 140, Potassium 3.6, Chloride 106, Carbon Dioxide 22, Anion Gap 15.6 H, BUN 50 H, Creatinine 6.60 H D, Estimated Creat Clear 12, Estimated GFR 8 L*, Est GFR ( Amer) 10 L* D, Glucose 158 H, Calcium 7.7 L I & O for Last 24 hours: Intake & Output 09/27/21 09/28/21 09/29/21 09/30/21 11:59 11:59 11:59 11:59 Intake Total 900 / 900 100 / 100 Output Total 1140 / 1140 200 / 200 300 / 300 350 / 350 Balance -240 / -240 -100 / -100 -300 / -300 -350 / -350 Weight 179 lb 3.2 oz 180 lb 2 oz 173 lb 175 lb 3.2 oz Narrative: Patient is obtunded, poorly responsive. Abdomen soft. G-tube site looks good. Lots of rhonchi in lungs. However oxygen requirement is very minimal. Extremities warm and well-perfused. Jose catheter draining dark urine Assessment and Plan (1) Aspiration pneumonia Status: Acute Qualifiers: Aspiration pneumonia type: unspecified Laterality: unspecified laterality Lung location: unspecified part of lung Qualified Code(s): J69.0 - Pneumonitis due to inhalation of food and vomit Category: Medical Code(s): J69.0 - Pneumonitis due to inhalation of food and vomit (2) Respiratory distress Status: Acute Category: Medical Code(s): R06.03 - Acute respiratory distress (3) Elevated troponin Status: Acute Category: Medical Code(s): R77.8 - Other specified abnormalities of plasma proteins (4) Gastrostomy tube in place Status: Acute Category: Medical Code(s): Z93.1 - Gastrostomy status (5) Respiratory failure with hypoxia Status: Acute Qualifiers: Chronicity: acute Qualified Code(s): J96.01 - Acute respiratory failure with hypoxia Category: Medical Code(s): J96.91 - Respiratory failure, unspecified with hypoxia (6) Acute kidney injury Status: Acute Category: Medical Code(s): N17.9 - Acute kidney failure, unspecified - Assessment and plan all Dx Assessment and Plan for all problems:: Holding antibiotics given high vancomycin trough levels and improvement in fevers and oxygenation. Creatinine remains very high secondary to nephrotoxic effect of drugs. These are being held. Patient will be watched to see if this turns around. Otherwise continue DNR status and comfort measures. Restart tube feeds at a very low rate today given his history of significant aspiration
[2021-09-30 09:25] LABS: Vancomycin,Trough 33.2 ug/mL (5.0-10.0)
--- NOTE | 2021-09-30 09:26 | PC.NURSE ---
Lab called critical value of vancomycin trough 33.2. Benjamin in pharmacy notified of vanc trough 33.2. No changes made to medication as medication still on hold per Benjamin.
--- NOTE | 2021-09-30 09:55 | HMH.PHACONS ---
- Pharmacy Consult Date: 09/30/21 Time: 09:56 Referring provider: DR. BURRIS Reason for Consult:: VANCOMYCIN LEVEL Allergies and ADEs:: Allergies Allergy/AdvReac Type Severity Reaction Status Date / Time No Known Allergies Allergy Unverified 04/19/17 14:10 Home Medications:: Home Medications Medication Instructions Recorded Confirmed Type aspirin 81 mg tablet,delayed 81 mg G-TUBE DAILY 06/01/17 09/26/21 History release atorvastatin 80 mg tablet 80 mg G-TUBE HS 06/01/17 09/26/21 History Amlodipine Besylate [Norvasc 5mg 5 mg G-TUBE BID 09/21/21 09/26/21 History tablet] Gabapentin [Gabapentin 100mg Cap] 100 mg G-TUBE TID 09/21/21 09/26/21 History Insulin Aspart [Novolog Penfill] 0 unit SQ ACHS 09/21/21 09/26/21 History Insulin Glargine,Hum.rec.anlog 45 units SQ HS 09/21/21 09/26/21 History [Lantus Solostar 100 Units/mL 3mL flexpen] Lansoprazole [Prevacid] 30 mg G-TUBE HS 09/21/21 09/26/21 History Levothyroxine Sodium [Synthroid 25 mcg G-TUBE DAILY 09/21/21 09/26/21 History 25mcg (0.025mg) tablet] Acetaminophen [Acetaminophen Extra 1,000 mg G-TUBE Q6HP PRN 09/22/21 09/26/21 History Strength] Albuterol Sulfate [Albuterol 2.5 mg IH Q4HP PRN 09/22/21 09/26/21 History 0.083% 2.5mg/3mL neb] Clopidogrel Bisulfate [Plavix 75mg 75 mg G-TUBE DAILY 09/22/21 09/26/21 History Tab] Docusate Sodium [Stool Softener] 100 mg G-TUBE BIDP PRN 09/22/21 09/26/21 History Magnesium Hydroxide [Milk of 30 ml G-TUBE DAILYP PRN 09/22/21 09/26/21 History Magnesia 30mL Udc] Nystatin 10 ml G-TUBE QID 09/22/21 09/26/21 History Cefdinir [Omnicef 300mg Capsule] 300 mg PO BID 09/26/21 09/26/21 History clindamycin HCL [Clindamycin HCl] 300 mg G-TUBE TID 09/26/21 09/26/21 History Height: 1.8 m Weight: 79.469 kg Laboratory Results:: Laboratory Results - last 24 hr 09/29/21 06:28: POC Glucose 160 H 09/29/21 11:30: POC Glucose 142 H 09/29/21 16:18: POC Glucose 163 H 09/29/21 20:28: POC Glucose 149 H 09/30/21 05:25: POC Glucose 150 H 09/30/21 05:38: Sodium 140, Potassium 3.6, Chloride 106, Carbon Dioxide 22, Anion Gap 15.6 H, BUN 50 H, Creatinine 6.60 H D, Estimated Creat Clear 12, Estimated GFR 8 L*, Est GFR ( Amer) 10 L* D, Glucose 158 H, Calcium 7.7 L 09/30/21 07:05: Vancomycin Trough 33.2 H Medical History: Reports:: Coronary Artery Disease, Depression, Diabetes Mellitus Type 2, Gastroesophageal Reflux Disease(GERD), Hyperlipidemia, Hypertension, Palpitations, Peripheral Artery Disease Denies:: Cancer, Diabetes Mellitus Type 1, MRSA Assessment and Plan (1) Aspiration pneumonia Status: Acute Qualifiers: Aspiration pneumonia type: unspecified Laterality: unspecified laterality Lung location: unspecified part of lung Qualified Code(s): J69.0 - Pneumonitis due to inhalation of food and vomit Category: Medical Code(s): J69.0 - Pneumonitis due to inhalation of food and vomit (2) Respiratory distress Status: Acute Category: Medical Code(s): R06.03 - Acute respiratory distress (3) Elevated troponin Status: Acute Category: Medical Code(s): R77.8 - Other specified abnormalities of plasma proteins (4) Gastrostomy tube in place Status: Acute Category: Medical Code(s): Z93.1 - Gastrostomy status (5) Respiratory failure with hypoxia Status: Acute Qualifiers: Chronicity: acute Qualified Code(s): J96.01 - Acute respiratory failure with hypoxia Category: Medical Code(s): J96.91 - Respiratory failure, unspecified with hypoxia (6) Acute kidney injury Status: Acute Category: Medical Code(s): N17.9 - Acute kidney failure, unspecified - Assessment and plan all Dx Assessment and Plan for all problems:: PATIENT'S VANCOMYCIN LEVEL WAS 33.2 MCG/ML THIS AM WITH LABS. RECOMMEND CONTINUING TO HOLD VANCOMYCIN DOSE AND WILL RECHECK IN 48H.
[2021-09-30 11:43] LABS: POC Glucose,Bedside 137 (70-110)
--- NOTE | 2021-09-30 12:50 | CARE MANAGER ---
Addendum entered by Sayda Pimentel RN 10/02/21 12:04: Left message for sister in law regarding patient discharge to [place] and Hospice will aadmit there. Addendum entered by Sayda Pimentel RN 10/01/21 16:58: Spoke with Hospice Nurse, [place], who states patient is appropriate for Hospice. Patient's niece cannot sign papers today, but they can admit after he discharges back to [facility] tomorrow. MARGI Martinez Addendum entered by Sayda Pimentel RN 10/01/21 10:44: Spoke with Sully again this morning. Agree to Hospice. Discussed patient being responsible for room and board at [facility] if he returns under Hospice care. Original Note: Spoke with Sully Corona, patient's sister in law and person to contact. She states that the family has decided that they feel Hospice will be appropriate. We will discuss tomorrow with Mrs. Corona again once we re-evaluate kidney function. They questioned if patient can continue Gtube feedings with Hospice and I told them I wasn't sure, but that Hospice could discuss all those questions prior to patient being admitted. Will touch base with familiy tomorrow. MARGI Martinez
[2021-09-30 16:45] LABS: POC Glucose,Bedside 162 (70-110)
[2021-09-30 22:07] LABS: POC Glucose,Bedside 133 (70-110)
[2021-10-01] VITALS: BP 176/47; PULSE 98; RESP 24; TEMP 37.4; O2SAT 92
[2021-10-01 04:00] VITALS: BP 181/56; PULSE 96; RESP 16; TEMP 37.6; O2SAT 92
[2021-10-01 05:00] VITALS: BMI 24.4
[2021-10-01 06:20] LABS: Chloride 107 mmol/L (98-107); Potassium 3.8 mmoL/L (3.5-5.1); Sodium 140 mmol/L (136-145)
[2021-10-01 06:23] LABS: Anion Gap 13.8 mEq/L (5-15); Blood Urea Nitrogen 56 mg/dl (9-20); Carbon Dioxide 23 mmol/L (22.0-30.0); Creatinine Clearance Estimated 10 mL/min (50-200); Estimated Glomerular Filt Rate 7 ml/min (>60); GFR (African American) 9 ML/MIN (>60)
[2021-10-01 06:24] LABS: Calcium 7.7 mg/dl (8.4-10.2); Glucose 160 mg/dl (74-100)
--- NOTE | 2021-10-01 06:52 | PC.NURSE ---
No acute changes. Pt continues to tolerate RA well with sats >90%. PEG residuals have been <10ml t/o shift. Jose in place draining clear yellow urine. Pt has been repositioned and oral care has been provided. Call light within reach.
[2021-10-01 06:53] LABS: POC Glucose,Bedside 135 (70-110)
[2021-10-01 08:00] VITALS: BP 172/61; PULSE 94; RESP 24; TEMP 37.6; O2SAT 91
--- NOTE | 2021-10-01 09:17 | P.PN_ITS ---
Internal Medicine - PN: Subj *Date: 10/01/21 *Time: 09:17 Interval history: Unfortunately patient's kidney function has not improved, continues to decline and now his urine output has slowed. Remains obtunded, rhonchi in chest but remains on room air. Exam Vital signs and Labs for Last 24 Hours: Temp Pulse Resp BP Pulse Ox 99.6 F 94 H 24 172/61 H 91 L 10/01/21 08:00 10/01/21 08:00 10/01/21 08:00 10/01/21 08:00 10/01/21 08:00 Laboratory Results - last 24 hr 09/30/21 07:05: Vancomycin Trough 33.2 H 09/30/21 11:15: POC Glucose 137 H 09/30/21 16:24: POC Glucose 162 H 09/30/21 21:04: POC Glucose 133 H 10/01/21 05:37: Sodium 140, Potassium 3.8, Chloride 107, Carbon Dioxide 23, Anion Gap 13.8, BUN 56 H, Creatinine 7.40 H, Estimated Creat Clear 10, Estimated GFR 7 L*, Est GFR ( Amer) 9 L*, Glucose 160 H, Calcium 7.7 L 10/01/21 06:02: POC Glucose 135 H I & O for Last 24 hours: Intake & Output 09/28/21 09/29/21 09/30/21 10/01/21 11:59 11:59 11:59 11:59 Intake Total 100 / 100 Output Total 200 / 200 300 / 300 350 / 350 425 / 425 Balance -100 / -100 -300 / -300 -350 / -350 -425 / -425 Weight 180 lb 2 oz 173 lb 175 lb 3.2 oz 174 lb 9.6 oz Microbiology Reports for the Last 24 Hours: Microbiology 09/29/21 11:30 Urethra Urine Culture - Preliminary 09/26/21 06:10 Blood Blood Culture - Final NO GROWTH AFTER 5 DAYS 09/26/21 06:10 Blood Blood Culture - Final NO GROWTH AFTER 5 DAYS 09/30/21 09:10 Sputum - Expectorated Sputum Gram Stain - Final Narrative: Obtunded, poorly responsive. Poor air movement. Abdomen soft. Extremities cold and mottled. Jose catheter draining very scant amounts of urine. Assessment and Plan (1) Aspiration pneumonia Status: Acute Qualifiers: Aspiration pneumonia type: unspecified Laterality: unspecified laterality Lung location: unspecified part of lung Qualified Code(s): J69.0 - Pneumonitis due to inhalation of food and vomit Category: Medical Code(s): J69.0 - Pneumonitis due to inhalation of food and vomit (2) Respiratory distress Status: Acute Category: Medical Code(s): R06.03 - Acute respiratory distress (3) Elevated troponin Status: Acute Category: Medical Code(s): R77.8 - Other specified abnormalities of plasma proteins (4) Gastrostomy tube in place Status: Acute Category: Medical Code(s): Z93.1 - Gastrostomy status (5) Respiratory failure with hypoxia Status: Acute Qualifiers: Chronicity: acute Qualified Code(s): J96.01 - Acute respiratory failure wi th hypoxia Category: Medical Code(s): J96.91 - Respiratory failure, unspecified with hypoxia (6) Acute kidney injury Status: Acute Category: Medical Code(s): N17.9 - Acute kidney failure, unspecified - Assessment and plan all Dx Assessment and Plan for all problems:: Poor prognosis, patient has a terminal status with kidney disease/renal failure. Plan will be to continue supportive care, family will be consulted regarding inpatient hospice management
--- NOTE | 2021-10-01 11:10 | DIET.NUTRFU ---
Patient tolerated TF at 10ml/hr yesterday with minimal residuals. Renal fxn overnight has worsened with Cr 7.4. Family is meeting with hospice today to review POC. Once family decides on POC will increase TF if appropriate to better meet nutritional needs.
[2021-10-01 11:23] VITALS: BP 163/80; PULSE 98; RESP 22; TEMP 36.9; O2SAT 91
[2021-10-01 12:27] LABS: POC Glucose,Bedside 160 (70-110)
[2021-10-01 15:59] VITALS: BP 164/64; PULSE 97; RESP 22; TEMP 36.8; O2SAT 90
[2021-10-01 16:54] LABS: POC Glucose,Bedside 143 (70-110)
--- NOTE | 2021-10-01 17:47 | PC.NURSE ---
Pt has rested throughout shift. Pt is comfortable, medicated with PRN pain medicine per JUN when moaning is present. Pt tolerating room air well with O2 sats >90%. PEG running at 10mL per hour. VSS. Pt turned Q2 hour throughout shift. Oral care completed several times.
[2021-10-01 20:00] VITALS: BP 140/74; PULSE 77; RESP 22; TEMP 36.7; O2SAT 93
[2021-10-01 21:46] LABS: POC Glucose,Bedside 135 (70-110)
[2021-10-02] VITALS: BP 138/68; PULSE 68; RESP 22; TEMP 36.7; O2SAT 94
--- NOTE | 2021-10-02 03:58 | PC.NURSE ---
Pt responds when spoken to. Speech is mostly incomprehensible. Has slept most of shift. VSS. Remains on RA. Rhonchi noted t/o lung magallanes. O2 sats 90s. Pt turned and repositioned. Oral care provided. F/C draining to bedside. No BM this shift. Glucerna continues to infuse at 10 ml/hr. No residual. HOB 30 degrees or greater. Medication administered per jun. Will continue to monitor.
[2021-10-02 04:00] VITALS: BP 176/50; PULSE 101; RESP 22; TEMP 37.2; O2SAT 93
[2021-10-02 06:00] VITALS: BMI 24.4
[2021-10-02 06:26] LABS: POC Glucose,Bedside 174 (70-110)
[2021-10-02 07:18] LABS: Chloride 107 mmol/L (98-107); Potassium 4.1 mmoL/L (3.5-5.1); Sodium 140 mmol/L (136-145)
[2021-10-02 07:21] LABS: Anion Gap 15.1 mEq/L (5-15); Blood Urea Nitrogen 63 mg/dl (9-20); Carbon Dioxide 22 mmol/L (22.0-30.0); Creatinine Clearance Estimated 9 mL/min (50-200); Estimated Glomerular Filt Rate 7 ml/min (>60); GFR (African American) 8 ML/MIN (>60)
[2021-10-02 07:22] LABS: Calcium 7.8 mg/dl (8.4-10.2); Glucose 160 mg/dl (74-100)
[2021-10-02 07:29] LABS: Vancomycin,Trough 28.9 ug/mL (5.0-10.0)
--- NOTE | 2021-10-02 07:42 | PC.NURSE ---
notified of creatinine 8.0
[2021-10-02 08:00] VITALS: BP 152/78; PULSE 90; RESP 22; TEMP 36.9; O2SAT 93
--- NOTE | 2021-10-02 08:54 | [facility].DCSUM ---
General - General Admission date:: 09/26/21 Discharge date: 10/02/21 HPI HPI: Medical Decision Narrative: 70-year-old male with history of prior stroke with left-sided weakness, G-tube dependent who is presenting to the ED with respiratory distress. Differential diagnoses include aspiration pneumonia, sepsis, respiratory failure, hypercapnia, COPD exacerbation, ACS. Given this work-up will include blood cultures, EKG, troponin, CMP, CBC, lactic acid, urine cultures, chest x-ray. Patient is febrile to 101 ?F, normotensive, tachycardic to the 110-120 range, oxygen saturation in the low 80s on 6 L nasal cannula. RT performed oral suctioning with improvement in his oxygen saturation, placed patient on high flow nasal cannula 40 L, 60% FiO2, tachypnea has improved and current oxygen saturation 97%. Gave 40 mg IV Lasix, Jose catheter is anchored. Suspect aspiration pneumonia. Starting IV Zosyn/vancomycin, giving 1 L of IV fluids. Lactate not elevated. Spoke to patient's [id number] who is his POA, she confirmed that he is DNR/DNI, however would like treatment with antibiotics rather than palliative care. Initial troponin elevated, will obtain second troponin I suspect this is due to demand ischemia given his hypoxia and tachycardia. Chest x-ray with no obvious consolidation. Patient appears much more comfortable on high flow nasal cannula, will speak with patient's primary physician for admission. General Adult HPI - General Chief complaint: Shortness of Breath/Dyspnea Stated complaint: SOA Time Seen by Provider: 09/26/21 06:41 Mode of Arrival: EMS Source of Information: EMS Limitations: Altered Mental Status Description of Symptoms (Recalled from ER Triage Doc. by RN): detention reports low 02 and coughing, sats 83% on 6L - History of Present Illness HPI narrative: 70-year-old male with history of prior CVA with left-sided deficits, G-tube dependent who is presenting to the ED with hypoxia, shortness of breath. [facility] lives at a detention, he was recently discharged yesterday. He is having difficulty breathing therefore they called EMS. His oxygen saturation was 82 in route with EMS on 6 L nasal cannula. He has coarse, rhonchorous lung sounds with moderate to significant amount of oral secretions. After suctioning patient he has what appears to be G-tube secretions. He has a poor cough due to his prior stroke. He was febrile here in the ED with a temperature Above note per ER: Please note patient was discharged from [facility] yesterday to go back to [facility] after treatment for aspiration pneumonia. He had tolerated low-grade tube feeds here, and actually cleared his chest x-ray and respiratory distress had improved. Unfortunately it sounds like he had another aspiration event at the detention once G-tube feeds were restarted and transferred back with the above problems. Hospital Course Hospital Course: 70-year-old male who is PEG tube dependent, residual left-sided hemiparesis, hypertension, diabetes who presented to the ER for recurrent episode of aspiration. Concern for aspiration pneumonia on admission. Initiated on antibiotics and Vapotherm. Was weaned to room air. Unfortunately with IV antibiotics and due to severity of illness on presentation, he developed kidney injury that has gotten worse. Creatinine continues to elevate and is at 8 today. Urine output has gradually decreased. Not frankly anuric but putting out less than 10 cc/h for the past 24 hours. Was reinitiated on tube feeds, tolerating small volume at this time. In light of his chronic conditions, worsening renal failure, recurrent aspiration event, discussions with family led to decision to transition to hospice care. We will transfer patient back to the detention to continue comfort measures and hospice care. Patient remains DNR. Examined on day of discharge. Appears comfortable at time of exam.
--- NOTE | 2021-10-02 09:03 | [facility]H.PHACONS ---
- Pharmacy Consult Date: 10/02/21 Time: 09:03 Referring provider: DR. BURRIS Reason for Consult:: VANCOMYCIN LEVEL Allergies and ADEs:: Allergies Allergy/AdvReac Type Severity Reaction Status Date / Time No Known Allergies Allergy Unverified 04/19/17 14:10 Home Medications:: Home Medications Medication Instructions Recorded Confirmed Type aspirin 81 mg tablet,delayed 81 mg G-TUBE DAILY 06/01/17 09/26/21 History release atorvastatin 80 mg tablet 80 mg G-TUBE HS 06/01/17 09/26/21 History Amlodipine Besylate [Norvasc 5mg 5 mg G-TUBE BID 09/21/21 09/26/21 History tablet] Gabapentin [Gabapentin 100mg Cap] 100 mg G-TUBE TID 09/21/21 09/26/21 History Insulin Aspart [Novolog Penfill] 0 unit SQ ACHS 09/21/21 09/26/21 History Insulin Glargine,Hum.rec.anlog 45 units SQ HS 09/21/21 09/26/21 History [Lantus Solostar 100 Units/mL 3mL flexpen] Lansoprazole [Prevacid] 30 mg G-TUBE HS 09/21/21 09/26/21 History Levothyroxine Sodium [Synthroid 25 mcg G-TUBE DAILY 09/21/21 09/26/21 History 25mcg (0.025mg) tablet] Acetaminophen [Acetaminophen Extra 1,000 mg G-TUBE Q6HP PRN 09/22/21 09/26/21 History Strength] Albuterol Sulfate [Albuterol 2.5 mg IH Q4HP PRN 09/22/21 09/26/21 History 0.083% 2.5mg/3mL neb] Clopidogrel Bisulfate [Plavix 75mg 75 mg G-TUBE DAILY 09/22/21 09/26/21 History Tab] Docusate Sodium [Stool Softener] 100 mg G-TUBE BIDP PRN 09/22/21 09/26/21 History Magnesium Hydroxide [Milk of 30 ml G-TUBE DAILYP PRN 09/22/21 09/26/21 History Magnesia 30mL Udc] Nystatin 10 ml G-TUBE QID 09/22/21 09/26/21 History Cefdinir [Omnicef 300mg Capsule] 300 mg PO BID 09/26/21 09/26/21 History clindamycin HCL [Clindamycin HCl] 300 mg G-TUBE TID 09/26/21 09/26/21 History Height: 1.8 m Weight: 79.18 kg Laboratory Results:: Laboratory Results - last 24 hr 10/01/21 12:20: POC Glucose 160 H 10/01/21 16:39: POC Glucose 143 H 10/01/21 21:38: POC Glucose 135 H 10/02/21 06:08: POC Glucose 174 H 10/02/21 06:14: Vancomycin Trough 28.9 H 10/02/21 06:14: Sodium 140, Potassium 4.1, Chloride 107, Carbon Dioxide 22, Anion Gap 15.1 H, BUN 63 H, Creatinine 8.00 H, Estimated Creat Clear 9, Estimated GFR 7 L*, Est GFR ( Amer) 8 L*, Glucose 160 H, Calcium 7.8 L Medical History: Reports:: Coronary Artery Disease, Depression, Diabetes Mellitus Type 2, Gastroesophageal Reflux Disease(GERD), Hyperlipidemia, Hypertension, Palpitations, Peripheral Artery Disease Denies:: Cancer, Diabetes Mellitus Type 1, MRSA Assessment and Plan (1) Aspiration pneumonia Status: Acute Qualifiers: Aspiration pneumonia type: unspecified Laterality: unspecified laterality Lung location: unspecified part of lung Qualified Code(s): J69.0 - Pneumonitis due to inhalation of food and vomit Category: Medical Code(s): J69.0 - Pneumonitis due to inhalation of food and vomit (2) Respiratory distress Status: Acute Category: Medical Code(s): R06.03 - Acute respiratory distress (3) Elevated troponin Status: Acute Category: Medical Code(s): R77.8 - Other specified abnormalities of plasma proteins (4) Gastrostomy tube in place Status: Acute Category: Medical Code(s): Z93.1 - Gastrostomy status (5) Respiratory failure with hypoxia Status: Acute Qualifiers: Chronicity: acute Qualified Code(s): J96.01 - Acute respiratory failure with hypoxia Category: Medical Code(s): J96.91 - Respiratory failure, unspecified with hypoxia (6) Acute kidney injury Status: Acute Category: Medical Code(s): N17.9 - Acute kidney failure, unspecified - Assessment and plan all Dx Assessment and Plan for all problems:: VANCOMYCIN LEVEL WAS 28.9 MCG/ML THIS AM. LAST DOSE WAS GIVEN ON 09/27/21.
[2021-10-02 10:09] LABS: Coronavirus 19, PCR Not Detected (NotDetected); Influenza A, PCR Not Detected (NotDetected); Influenza B, PCR Not Detected (NotDetected)
[2021-10-02 12:00] VITALS: BP 144/82; PULSE 94; RESP 22; TEMP 37.1; O2SAT 94
[2021-10-03 10:09] LABS: POC Glucose,Bedside 170 (70-110)
--- NOTE | 2021-10-05 14:10 | CARE MANAGER ---
Spoke with nurse at [facility] and did post-discharge phone interview, she states that Hospice has admitted Mr. Corona to their service and he is ok at this time. No further needs.
== END 2021-10-02 14:12 | DRG 177 ==
LOC: ER 07:53 → 2ND 09-27 00:20
PROVIDERS: Internal Medicine Adolescent Medicine; Admitting Provider Internal Medicine Adolescent Medicine; Emergency Provider Emergency Medicine; PCP Internal Medicine Adolescent Medicine; Visit Provider Internal Medicine Adolescent Medicine
DX: J69.0 Pneumonitis due to inhalation of food and vomit (principal); J96.21 Acute and chronic respiratory failure with hypoxia; I69.354 Hemiplegia and hemiparesis following cerebral infarction affecting left non-dominant side; N17.9 Acute kidney failure, unspecified; Z66 Do not resuscitate; Z93.1 Gastrostomy status; I25.10 Atherosclerotic heart disease of native coronary artery without angina pectoris; K21.9 Gastro-esophageal reflux disease without esophagitis; E11.51 Type 2 diabetes mellitus with diabetic peripheral angiopathy without gangrene; Z95.5 Presence of coronary angioplasty implant and graft; Z79.4 Long term (current) use of insulin; I10 Essential (primary) hypertension
CPT/HCPCS: 36415; 51702; 71045; 80048; 80053; 80202; 81001; 82803; 82962; 83605; 84484; 85007; 85025; 87040; 87070; 87086; 87205; 93005; 94640; 94760; 96375; 99285; C9803; J2543; J3370; U0003; U0005